=== PATIENT | female | born 1930 | race Caucasian/White ===

== ENCOUNTER 2017-08-08 04:53 | Emergency (ER) | payer MEDICARE, BC ==
[~2017-08-08] VITALS: Ht 182.9 cm; Wt 100.0 kg
[~2017-08-08 04:53] MED LIST: CALTTAB PO; COUM5TAB PO; DOCU1CAP39 PO; ESCI10TA PO; FISHCAP PO; IMOD2TAB PO; LIPI40TA PO; MECL-62 PO; POTA-267 PO; VITAMIN PO; WARF7.5T4 PO; [UNRECOGNIZED DRUG - OTHER] PO
[2017-08-08 05:05] VITALS: BP 185/100; PULSE 75; RESP 20; TEMP 97.9; O2SAT 94
--- NOTE | 2017-08-08 05:25 | PD ---
HPI Chief Complaint: Bleeding Time Seen by Provider: 05:16 Travel History International Travel<30 days: No Contact w/Intl Traveler<30days: No Traveled to known affect area: No History of Present Illness HPI The patient is an 87-year-old female that had a basal cell carcinoma resected at [facility] day, yesterday. She had a small amount of bleeding from the lower pole of the incision and call the ambulance. She has not had any further bleeding in the ambulance or here in emergency department. She does take Eliquis for atrial fibrillation. She did not discontinue the Eliquis for this procedure or after the procedure. She denies any trauma to the portion of the right upper lip PFS Past Medical History Hx Anticoagulant Therapy: Yes Arthritis: Yes Atrial Fibrillation: Yes Autoimmune Disease: Yes (RHEUMATOID ARTHRITIS) Blood Disorders: No Anxiety: Yes Depression: No Heart Rhythm Problems: No Cancer: No Cardiovascular Problems: Yes High Cholesterol: Yes Chemotherapy: Yes (BILATERAL BREAST CA) Chest Pain: Yes Congestive Heart Failure: No Cerebrovascular Accident: No Diabetes: Yes Diminished Hearing: No Diverticulitis: Yes Endocrine: Yes Gastrointestinal Disorders: Yes GERD: No Genitourinary: No Headaches: No Hiatal Hernia: Yes Hypertension: Yes Immune Disorder: No Implanted Vascular Access Dvce: Yes Kidney Stones: No Musculoskeletal: Yes (neuropathy) Neurologic: No Psychiatric: No Reproductive: No Respiratory: No Migraines: No Myocardial Infarction: Yes Radiation Therapy: Yes (MICHAEL. CHEST) Renal Failure: No Seizures: No Sickle Cell Disease: No Thyroid Disease: Yes Ulcer: No Menopausal: Yes : 5 Para: 3 Miscarriage: 2 Past Surgical History Abdominal Surgery: Yes (APPY) AICD: No Appendectomy: Yes Arteriovenous Shunt: No Body Medical Devices: NONE Cardiac Surgery: No Ear Surgery: No Endocrine Surgery: No Eye Surgery: Yes (CATARACT) Genitourinary Surgery: No Gynecologic Surgery: No Hysterectomy: Yes Insulin Pump: No Joint Replacement: Yes (BILATERAL HIPS/LEFT KNEE) Neurologic Surgery: No Oral Surgery: Yes (T & A) Pacemaker: No Thoracic Surgery: No Tonsillectomy: Yes Other Surgery: Yes Social History Alcohol Use: Yes (OCC) Tobacco Use: No (QUIT ) Substance Use: No Allergies-Medications (Allergen,Severity, Reaction): Coded Allergies: Sulfa (Sulfonamide Antibiotics) (Unverified Allergy, Severe, Swelling, ) adhesive (Unverified Allergy, Severe, TAPE, 06/18/17) clindamycin (Unverified Allergy, Severe, 06/18/17) rofecoxib (Unverified Allergy, Severe, Swelling, 06/18/17) tramadol (Unverified Allergy, Severe, Hallucinations, 06/18/17) *MDRO Multi-Drug Resistant Organism (Verified Allergy, Unknown, 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 Reported Meds & Prescriptions Reported Meds & Active Scripts Active Reported Meclizine Hcl (Meclizine HCl) 25 Mg Tab 25 Mg PO BID Caltrate 600+D (Calcium Carbonate/Cholecalciferol) + Tab 2 Tab PO DAILY [Vm 75 Vitamin] 1 Tab PO DAILY Warfarin Sodium 7.5 mg (Warfarin Sodium) 7.5 Mg Tab 7.5 Mg PO MOWEFR@16 Klor-Con 10 (Potassium Chloride) 10 Meq Tab 30 Meq PO DAILY Coumadin 5 mg (Warfarin Sodium) Warfarin Sodium 5 mg Tab 5 Mg PO SUTUTHSA@16 Imodium A-D (Loperamide HCl) 2 Mg Tab 2 Mg PO 8 TIMES A DAY DO NOT EXCEED 8 CAPSULES/TABLETS 24 HOURS Fish Oil ([place]-3 Fatty Acids) Cap 1 Cap PO DAILY Colace 100 Mg Cap (Docusate Sodium) 100 Mg Cap 100 Mg PO DAILY PRN Escitalopram Oxalate 10 Mg Tab 10 Mg PO DAILY Lipitor (Atorvastatin Calcium) 40 Mg Tab 40 Mg PO HS Review of Systems Except as stated in HPI: all other systems reviewed are Neg Physical Exam Narrative GENERAL: Well-nourished, well-developed patient in no apparent distress. The blood pressure is 185/100 but the rest the vital signs are normal. SKIN: Focused skin assessment warm/dry. There is a healing incision above the right upper lip. There is no active bleeding from this incision but there is a small clot on the inferior pole of this incision. HEAD: Normocephalic. EYES: No scleral icterus. No injection or drainage. NECK: Supple, trachea midline. No JVD or lymphadenopathy. CARDIOVASCULAR: Regular rate and rhythm without murmurs, gallops, or rubs. RESPIRATORY: Breath sounds equal bilaterally. No accessory muscle use. GASTROINTESTINAL: Abdomen soft, non-tender, nondistended. MUSCULOSKELETAL: No cyanosis, or edema. BACK: Nontender without obvious deformity. No CVA tenderness. Data Data Last Documented VS Vital Signs Date Time Temp Pulse Resp B/P (MAP) Pulse Ox O2 Delivery O2 Flow Rate FiO2 08/08/17 05:14 74 20 08/08/17 05:05 97.9 185/100 (128) 94 MDM Medical Decision Making Medical Screen Exam Complete: Yes Emergency Medical Condition: Yes Medical Record Reviewed: Yes Differential Diagnosis Coagulopathy from Eliquis, minimal wound bleeding, significant wound bleeding Narrative Course The patient has had minimal bleeding from the incision by history and has no bleeding at this time. She is been observed for over an hour no bleeding was observed. Diagnosis Primary Impression: Bleeding from wound Additional Instructions: Give [facility] a call when they open up later on today. The bleeding appears minimal and there is no bleeding here in the emergency department. I would discontinue Eliquis for several days until the bleeding stops completely. If it does bleed, use pressure with a tissue over the incision for about 5 minutes. This normally will stop the bleeding. The bleeding is already stopped spontaneously in the emergency department despite no pressure put on the incision. Med/Other Pt SpecificInfo: Med Stopped Disposition: 01 DISCHARGE HOME Condition: Stable Mikey Alford MD Aug 08, 2017 05:25
[2017-08-08] MEDS ORDERED: POTA10CA PO (05:28)
[2017-08-08] MEDS ORDERED: CALCTAB19 PO (05:28)
[2017-08-08] MEDS ORDERED: TYLE325T PO (05:28)
[2017-08-08] MEDS ORDERED: LOPE-1 PO (05:28)
[2017-08-08] MEDS ORDERED: APIX5TAB PO (05:28)
[2017-08-08] MEDS ORDERED: ATOR40TA16 PO (05:28)
[2017-08-08] MEDS ORDERED: ESCI10TA PO (05:28)
[2017-08-08] MEDS ORDERED: MECL1TAB42 PO (05:28)
[2017-08-08 06:26] VITALS: BP 178/98
== END 2017-08-08 06:28 | disposition home or self-care (01) ==
LOC: PHED 04:53
DX: Z51.89 Encounter for other specified aftercare (principal); Z85.828 Personal history of other malignant neoplasm of skin; I10 Essential (primary) hypertension; I25.2 Old myocardial infarction; I48.91 Unspecified atrial fibrillation; Z79.01 Long term (current) use of anticoagulants; Z85.3 Personal history of malignant neoplasm of breast; E78.00 Pure hypercholesterolemia, unspecified; E11.9 Type 2 diabetes mellitus without complications
CPT/HCPCS: 99283

== ENCOUNTER 2017-08-27 14:37 | Emergency (ER) | payer MEDICARE, BC ==
[~2017-08-27 14:37] MED LIST changes: +APIX5TAB PO; +ATOR40TA16 PO; +CALCTAB19 PO; -CALTTAB PO; -COUM5TAB PO; -DOCU1CAP39 PO; -FISHCAP PO; -IMOD2TAB PO; -LIPI40TA PO; +LOPE-1 PO; -MECL-62 PO; +MECL1TAB42 PO; -POTA-267 PO; +POTA10CA PO; +TYLE325T PO; -VITAMIN PO; -WARF7.5T4 PO; -[UNRECOGNIZED DRUG - OTHER] PO
[2017-08-27 14:46] VITALS: BP 144/62; PULSE 86; RESP 18; TEMP 97.7; O2SAT 90
[2017-08-27] MEDS ORDERED: APIX5TAB PO (14:55)
[2017-08-27] MEDS ORDERED: FURO1TAB62 PO (14:55)
[2017-08-27] MEDS ORDERED: FAMO20TA2 PO (14:55)
[2017-08-27] MEDS ORDERED: ALLO100T PO (14:55)
[2017-08-27] MEDS ORDERED: GABA300C5 PO (14:55)
[2017-08-27] MEDS ORDERED: [UNRECOGNIZED DRUG - CODE] PO (14:55)
[2017-08-27] MEDS ORDERED: SODIUM CHLORIDE 0.9% FLUSH 10 ML FLUSH IVF PRN (15:30)
[2017-08-27] MEDS ORDERED: SODIUM CHLOR 0.9% 250 ML INJ 250 ML IV ONE (15:30)
[2017-08-27 15:32] VITALS: O2SAT 96
--- NOTE | 2017-08-27 15:49 | PD ---
HPI Chief Complaint: Cardiac Complaint Time Seen by Provider: 14:48 Travel History International Travel<30 days: No Contact w/Intl Traveler<30days: No Traveled to known affect area: No History of Present Illness HPI The patient is a 87-year-old female who presents to the emergency department via EMS for fatigue. The patient lives at home with her , has a home health care nurse who comes by once a week. The patient states she slept in a chair last night because her wanting company, states he normally sleeps in a chair actually sleeps in the bed. The patient states she did not have a good night sleep, was tired this morning when the home health care nurse came by and complained of fatigue. The patient states she Follows sleep and when the nurse took her pulse she thought it was in the 30s. She therefore called her supervising physician, Dr. Guerrero, who referred the patient to the emergency department. The patient does have a history of atrial fibrillation with a heart rate that varies from the 30s to the 80s. She denies any chest pain, shortness of breath, states she recently had a chest x-ray and CT of the thorax performed. She denies any nausea, vomiting, diarrhea, abdominal pain, or dysuria. However, she does have a history of recurrent urinary tract infections. The patient does note mild edema to the legs and states that secondary to sleeping in the chair, states it's better when she sleeps in the bed. Symptoms are mild to moderate, possibly exacerbated after sleeping in a chair all night and not receiving a good night sleep. PFSH Past Medical History Hx Anticoagulant Therapy: Yes Arthritis: Yes Asthma: Yes Atrial Fibrillation: Yes Autoimmune Disease: Yes (RHEUMATOID ARTHRITIS) Blood Disorders: No Anxiety: Yes Depression: No Heart Rhythm Problems: No Cancer: No Cardiovascular Problems: Yes High Cholesterol: Yes Chemotherapy: Yes (BILATERAL BREAST CA) Chest Pain: Yes Congestive Heart Failure: No Cerebrovascular Accident: No Diabetes: Yes Patient Takes Glucophage: No Diminished Hearing: No Diverticulitis: Yes Endocrine: Yes Gastrointestinal Disorders: Yes GERD: No Gout: Yes Genitourinary: No Headaches: No Hiatal Hernia: Yes Hypertension: Yes Immune Disorder: No Implanted Vascular Access Dvce: Yes Kidney Stones: No Musculoskeletal: Yes (NEUROPATHY) Neurologic: No Psychiatric: No Reproductive: No Respiratory: No Migraines: No Myocardial Infarction: Yes Radiation Therapy: Yes (MICHAEL. CHEST) Renal Failure: No Seizures: No Sickle Cell Disease: No Thyroid Disease: Yes Ulcer: No Tetanus Vaccination: < 5 Years Influenza Vaccination: Yes Menopausal: Yes : 5 Para: 3 Miscarriage: 2 Past Surgical History Abdominal Surgery: Yes AICD: No Appendectomy: Yes Arteriovenous Shunt: No Body Medical Devices: NONE Cardiac Surgery: No Ear Surgery: No Endocrine Surgery: No Eye Surgery: Yes (CATARACT) Genitourinary Surgery: No Gynecologic Surgery: No Hysterectomy: Yes Insulin Pump: No Joint Replacement: Yes (BILATERAL HIPS/LEFT KNEE) Neurologic Surgery: No Oral Surgery: Yes (T & A) Pacemaker: No Thoracic Surgery: No Tonsillectomy: Yes Other Surgery: Yes Social History Alcohol Use: Yes (OCC) Tobacco Use: No (QUIT ) Substance Use: No Allergies-Medications (Allergen,Severity, Reaction): Coded Allergies: Sulfa (Sulfonamide Antibiotics) (Unverified Allergy, Severe, Swelling, ) adhesive (Unverified Allergy, Severe, TAPE, 08/27/17) clindamycin (Unverified Allergy, Severe, 08/27/17) rofecoxib (Unverified Allergy, Severe, Swelling, 08/27/17) tramadol (Unverified Allergy, Severe, Hallucinations, 08/27/17) *MDRO Multi-Drug Resistant Organism (Verified Allergy, Unknown, 08/27/17) MRSA 2004 ESBL 2013 Reported Meds & Prescriptions Reported Meds & Active Scripts Active Reported Eliquis (Apixaban) 5 Mg Tab 5 Mg PO BID Darifenacin ER 24 HR 15 Mg Tab 15 Mg PO DAILY Allopurinol 100 Mg Tab 100 Mg PO DAILY Famotidine 20 Mg Tab 20 Mg PO BID Lasix (Furosemide) 20 Mg Tab 20 Mg PO DAILY Gabapentin 300 Mg Cap 300 Mg PO BID Potassium Chloride ER (Potassium Chloride) 10 Meq Cap 10 Meq PO BID Meclizine 25 (Meclizine HCl) 25 Mg Tab 25 Mg PO DIRECTED Review of Systems Except as stated in HPI: all other systems reviewed are Neg General / Constitutional: No: Fever Cardiovascular: Positive: Irregular Rhythm, No: Chest Pain or Discomfort Respiratory: No: Shortness of Breath Gastrointestinal: No: Nausea, Vomiting, Abdominal Pain Genitourinary: No: Dysuria Musculoskeletal: Positive: Weakness, Edema Neurologic: No: Dizziness Physical Exam Narrative GENERAL: Awake, alert, pleasant 87-year-old female who appears her stated age and is in no acute respiratory distress. SKIN: Focused skin assessment warm/dry. HEAD: Atraumatic. Normocephalic. EYES: No injection or drainage. ENT: No nasal bleeding or discharge. Slightly dry mucous membranes. NECK: Trachea midline. No JVD. CARDIOVASCULAR: Irregular, heart rate in the 70s. RESPIRATORY: No accessory muscle use. Clear to auscultation. Breath sounds equal bilaterally. GASTROINTESTINAL: Abdomen soft, non-tender, nondistended. No rebound tenderness. MUSCULOSKELETAL: No obvious deformities. No clubbing. No cyanosis. Pedal edema noted bilaterally. NEUROLOGICAL: Awake and alert. No obvious cranial nerve deficits. Motor grossly within normal limits. Normal speech. PSYCHIATRIC: Appropriate mood and affect; insight and judgment normal. Data Data Last Documented VS Vital Signs Date Time Temp Pulse Resp B/P (MAP) Pulse Ox O2 Delivery O2 Flow Rate FiO2 08/27/17 17:19 65 16 164/72 (102) 97 Nasal Cannula 2.00 08/27/17 14:46 97.7 Orders Orders Complete Blood Count With Diff (08/27/17 15:29) Comprehensive Metabolic Panel (08/27/17 15:29) B-Type Natriuretic Peptide (08/27/17 15:29) Act Partial Throm Time (Ptt) (08/27/17 15:29) Prothrombin Time / Inr (Pt) (08/27/17 15:29) Magnesium (Mg) (08/27/17 15:29) Ckmb (Isoenzyme) Profile (08/27/17 15:29) Troponin I (08/27/17 15:29) Urinalysis - C+S If Indicated (08/27/17 15:29) Iv Access Insert/Monitor (08/27/17 15:29) Electrocardiogram (08/27/17 15:29) Ecg Monitoring (08/27/17 15:29) Oximetry (08/27/17 15:29) Oxygen Administration (08/27/17 15:29) Sodium Chloride 0.9% Flush (Ns Flush) (08/27/17 15:30) Sodium Chlor 0.9% 250 Ml Inj (Ns 250 Ml (08/27/17 15:30) Urine Culture (08/27/17 16:00) Ciprofloxacin 400 Mg Premix (Cipro 400 M (08/27/17 17:15) Labs Laboratory Tests Test 08/27/17 16:00 08/27/17 16:15 08/27/17 17:09 Urine Collection Type VOIDED Urine Color YELLOW Urine Turbidity CLEAR Urine pH 5.5 Urine Specific [place] 1.010 Urine Protein NEG mg/dL Urine Glucose (UA) NEG mg/dL Urine Ketones NEG mg/dL Urine Occult Blood TRACE Urine Nitrite NEG Urine Bilirubin NEG Urine Leukocyte Esterase SMALL Urine WBC 15-19 /hpf Urine WBC Clumps FEW Urine Squamous Epithelial Cells 2-4 /hpf Urine Bacteria RARE /hpf Microscopic Urinalysis Comment CULTURE INDICATED White Blood Count 6.6 TH/MM3 Red Blood Count 3.76 MIL/MM3 Hemoglobin 12.9 GM/DL Hematocrit 39.0 % Mean Corpuscular Volume 103.6 FL Mean Corpuscular Hemoglobin 34.2 PG Mean Corpuscular Hemoglobin Concent 33.0 % Red Cell Distribution Width 16.6 % Platelet Count 194 TH/MM3 Mean Platelet Volume 9.0 FL Neutrophils (%) (Auto) 49.7 % Lymphocytes (%) (Auto) 29.6 % Monocytes (%) (Auto) 8.2 % Eosinophils (%) (Auto) 10.9 % Basophils (%) (Auto) 1.6 % Neutrophils # (Auto) 3.3 TH/MM3 Lymphocytes # (Auto) 2.0 TH/MM3 Monocytes # (Auto) 0.5 TH/MM3 Eosinophils # (Auto) 0.7 TH/MM3 Basophils # (Auto) 0.1 TH/MM3 CBC Comment AUTO DIFF Differential Comment AUTO DIFF CONFIRMED Platelet Estimate NORMAL Platelet Morphology Comment NORMAL B-Type Natriuretic Peptide 211 PG/ML Prothrombin Time 11.8 SEC Prothromb Time International Ratio 1.1 RATIO Activated Partial Thromboplast Time 28.5 SEC Blood Urea Nitrogen 28 MG/DL Creatinine 1.30 MG/DL Random Glucose 92 MG/DL Total Protein 7.3 GM/DL Albumin 3.3 GM/DL Calcium Level 8.8 MG/DL Magnesium Level 1.6 MG/DL Alkaline Phosphatase 161 U/L Aspartate Amino Transf (AST/SGOT) 78 U/L Alanine Aminotransferase (ALT/SGPT) 69 U/L Total Bilirubin 0.5 MG/DL Sodium Level 141 MEQ/L Potassium Level 4.4 MEQ/L Chloride Level 105 MEQ/L Carbon Dioxide Level 29.4 MEQ/L Anion Gap 7 MEQ/L Estimat Glomerular Filtration Rate 39 ML/MIN Total Creatine Kinase 43 U/L Troponin I LESS THAN 0.02 NG/ML MDM Medical Decision Making Medical Screen Exam Complete: Yes Emergency Medical Condition: Yes Medical Record Reviewed: Yes Interpretation(s) EKG reveals atrial/supraventricular rhythm, no visible P waves. Multiple unifocal PVCs noted. Differential Diagnosis Differential diagnosis includes hyponatremia, dehydration, UTI, arrhythmia, bradycardia, electrolyte abnormality, NSTEMI. Narrative Course IV was established, labs are drawn and sent, and the patient was placed on cardiac telemetry monitoring and continuous pulse oximetry monitoring. EKG was ordered and interpreted. UA was sent to lab. The patient was administered 500 cc of normal saline. CPK and troponin are unremarkable. Sodium is within normal limits. UA is positive for UTI, therefore, the patient was administered Cipro 400 mg intravenously. She is allergic to sulfa. She'll be discharged home on Cipro twice a day for one week for UTI. The patient's GFR is 39, therefore, it will be 500 mg twice a day. She is advised to follow-up with her primary physician. Return if symptoms worsen or progress. Diagnosis Primary Impression: UTI (urinary tract infection) Qualified Codes: N30.00 - Acute cystitis without hematuria Additional Impression: Weakness generalized Patient Instructions: General Instructions Additional Instructions: Medications as directed. Follow-up with your primary physician. Return if symptoms worsen or progress. Med/Other Pt SpecificInfo: Prescription(s) given Scripts Ciprofloxacin (Cipro) 500 Mg Tab 500 MG PO BID for Infection for 7 Days, #14 TAB 0 Refills Prov: Ang Barger MD 08/27/17 Disposition: DISCHARGE HOME Condition: Stable Ang Barger MD Aug 27, 2017 15:49
[2017-08-27 16:10] LABS: BILIRUBIN, URINE NEG (NEG); BLOOD, URINE TRACE (NEG); GLUCOSE,URINE NEG (NEG); KETONE, URINE NEG (NEG); NITRITE,URINE NEG (NEG); PH, URINE 5.5 (5.0-8.5); URINE LEUKOCYTE ESTERASE SMALL (NEG)
[2017-08-27 16:19] LABS: URINE COLOR YELLOW (YELLW/STRAW); WBC, URINE 15-19 /hpf (0-5)
[2017-08-27 16:20] LABS: WHITE BLOOD CELL CLUMPS FEW
[2017-08-27 16:22] LABS: BACTERIA, URINE RARE /hpf
[2017-08-27 16:27] LABS: AUTOMATED NEUTROPHIL # 3.3 TH/MM3 (1.8-7.7); BASOPHIL # 0.1 TH/MM3 (0-0.2); BASOPHIL % 1.6 % (0.0-2.0); EOSINOPHIL # 0.7 TH/MM3 (0-0.4); EOSINOPHIL % 10.9 % (0.0-4.0); HEMOGLOBIN 12.9 GM/DL (11.6-15.3); LYMPH % 29.6 % (9.0-44.0); MEAN CELL VOLUME 103.6 FL (80.0-100.0); MEAN CORPUSCULAR HEMOGLOBIN 34.2 PG (27.0-34.0); MONO % 8.2 % (0.0-8.0); MONOCYTE # 0.5 TH/MM3 (0-0.9); NEUT % 49.7 % (16.0-70.0); PLATELET COUNT 194 TH/MM3 (150-450); RED BLOOD COUNT 3.76 MIL/MM3 (4.00-5.30); RED CELL DISTRIBUTION WIDTH 16.6 % (11.6-17.2); WHITE BLOOD COUNT 6.6 TH/MM3 (4.0-11.0)
[2017-08-27] MEDS ORDERED: CIPROFLOXACIN 400 MG PREMIX 200 ML IV ONE (17:15)
[2017-08-27 17:19] VITALS: BP 164/72; PULSE 65; RESP 16; O2SAT 97
[2017-08-27 17:41] LABS: CHLORIDE 105 MEQ/L (98-107); SODIUM (NA) 141 MEQ/L (136-145)
[2017-08-27 17:44] LABS: INTERNATIONAL NORMALIZED RATIO 1.1 RATIO; PROTHROMBIN TIME - PATIENT 11.8 SEC (9.8-11.6)
[2017-08-27 17:45] LABS: CALCIUM 8.8 MG/DL (8.5-10.1)
[2017-08-27 17:46] LABS: ALBUMIN 3.3 GM/DL (3.4-5.0); BICARBONATE 29.4 MEQ/L (21.0-32.0); BLOOD UREA NITROGEN 28 MG/DL (7-18); GLUCOSE,RANDOM 92 MG/DL (74-106); MAGNESIUM 1.6 MG/DL (1.5-2.5)
[2017-08-27 17:49] LABS: ALT (GPT) 69 U/L (10-53); AST (GOT) 78 U/L (15-37); GLOMERULAR FILTRATION RATE 39 ML/MIN (>89)
[2017-08-27 17:51] LABS: TOTAL BILIRUBIN ADULT 0.5 MG/DL (0.2-1.0); TOTAL PROTEIN 7.3 GM/DL (6.4-8.2)
[2017-08-27 17:52] LABS: ALKALINE PHOSPHATASE 161 U/L (45-117)
[2017-08-27 17:54] LABS: TROPONIN I LESS THAN 0.02 NG/ML (0.02-0.05)
[2017-08-27] MEDS ORDERED: CIPR-9 PO (18:42)
[2017-08-27 19:36] VITALS: BP 171/73
--- NOTE | 2017-08-27 21:55 | EKG ---
Date Performed: 08/27/2017 Time Performed: 15:38:08 PTAGE: 87 years EKG: ATRIAL FIBRILLATION WITH PVCS LOW QRS VOLTAGE IN PRECORDIAL LEADS ABNORMAL ECG PREVIOUS TRACING : 06/18/2016 19.12 Compared to prior tracing no significant change DOCTOR: Mikey Walton Interpretating Date/Time 08/27/2017 21:53:12
== END 2017-08-27 19:50 | disposition home or self-care (01) ==
LOC: PHED 14:37
DX: N30.00 Acute cystitis without hematuria (principal); B96.89 Other specified bacterial agents as the cause of diseases classified elsewhere; R53.1 Weakness; I48.91 Unspecified atrial fibrillation; Z79.01 Long term (current) use of anticoagulants
CPT/HCPCS: 80053; 81001; 82550; 83735; 83880; 84484; 85025; 85610; 85730; 87086; 93005; 96361; 96365; 99284; J0744; J7050

== ENCOUNTER 2018-10-18 06:01 | Inpatient (IN) ==
--- NOTE | 2018-10-18 07:05 | XR ---
EXAM DATE: 10/18/2018 6:59 AM EST AGE/SEX: 88 years / Female INDICATIONS: Left sided pelvic pain post fall. CLINICAL DATA: This is the patient's initial encounter. Patient reports that signs and symptoms have been present for 1 day and indicates a pain score of 6/10. MEDICAL/SURGICAL HISTORY: . A-fib. . Bilateral hip replacements. COMPARISON: [facility] – [place], PELVIS AP ONLY, 09/02/2015. . FINDINGS: Osseous structures are intact without evidence of fracture or dislocation. Degenerative changes seen within the lower lumbar spine. Bilateral hip prosthesis which appear appropriate in position. Soft ti ssues are unremarkable. CONCLUSION: No evidence of fracture. Electronically signed by: Anika Quintanilla MD Board Certified Radiologist 10/18/2018 7:04 AM JURGEN T
--- NOTE | 2018-10-18 07:46 | ED ---
HPI General Chief Complaint: Fall Stated Complaint: Hip Pain Time Seen by Provider: 10/18/18 07:36 Source: patient and EMS Mode of arrival: EMS Limitations: no limitations History of Present Illness HPI Narrative: 88-year-old female patient presents to the ER today brought in by EMS after she got out of the shower and try to get her walker and stumbled and fell on her knees and left side. She denies any head injury but is currently complaining of a left hip pain and a right knee pain. She denies any loss of consciousness, chest pains, trouble breathing, or other issues. She states that her left leg has not been giving her much balance and she has been stumbling with it recently. Modifying Factors: None Associated Signs & Symptoms: Fall, left hip injury, right knee injury Risk Factors: Elderly Related Data Home Medications Medication Instructions Recorded Confirmed Unable to Obtain Home Meds 10/18/18 10/18/18 Allergies Allergy/AdvReac Type Severity Reaction Status Date / Time adhesive Allergy Severe TAPE Unverified 10/18/18 06:34 clindamycin Allergy Severe Rash, Unverified 10/18/18 06:34 Localized rofecoxib Allergy Severe Swelling Unverified 10/18/18 06:34 Sulfa (Sulfonamide Allergy Severe Swelling Unverified 10/18/18 06:34 Antibiotics) tramadol Allergy Severe Hallucinati Unverified 10/18/18 06:34 ons *MDRO Multi-Drug Resistant Allergy Unknown Diarrhea Uncoded 10/18/18 06:34 Organism Review of Systems ROS: all other systems reviewed are negative [facility] Medical History Medical History Afib (Acute) Arthritis (Acute) Breast cancer (Acute) COPD (chronic obstructive pulmonary disease) (Acute) HTN (hypertension) (Acute) Surgical History Surgical History Hx of appendectomy (Acute) Social History Social History Substance History: No History of Abuse Second Hand Smoke Exposure: No Smoking Status: Former smoker How Often Do You Have a Drink Containing Alcohol: Monthly or less Recent Out of Country Travel within the Last 8 Weeks: No Immunization History Tetanus Immunization: <5 Years Exam Narrative Exam Narrative: GENERAL: Well-developed elderly female patient currently in moderate distress. Awake and oriented x3. SKIN: Focused skin assessment warm/dry. HEAD: Atraumatic. Normocephalic. EYES: Pupils equal and round. No scleral icterus. No injection or drainage. ENT: No nasal bleeding or discharge. Mucous membranes pink and moist. NECK: Trachea midline. No JVD. CARDIOVASCULAR: Regular rate and rhythm. No murmur appreciated. RESPIRATORY: No accessory muscle use. Clear to auscultation. Breath sounds equal bilaterally. GASTROINTESTINAL: Abdomen soft, non-tender, nondistended. Hepatic and splenic margins not palpable. MUSCULOSKELETAL: No obvious deformities. No clubbing. No cyanosis. No edema. Pelvis: Stable, tender to palpation mildly in the left hip and right buttocks area. There is tenderness palpation and range of motion of the right knee. NEUROLOGICAL: Awake and alert. No obvious cranial nerve deficits. Motor grossly within normal limits. Normal speech. PSYCHIATRIC: Appropriate mood and affect; insight and judgment normal. Course Initial Documented Vital Signs Temperature 98.0 F 10/18/18 06:26 Pulse Rate 94 H 10/18/18 06:26 Respiratory Rate 16 10/18/18 06:26 Blood Pressure 136/82 10/18/18 06:26 Pulse Oximetry 100 10/18/18 06:26 Last Documented Vital Signs Temperature 98.0 F 10/18/18 06:26 Pulse Rate 116 H 10/18/18 08:12 Respiratory Rate 24 10/18/18 07:43 Blood Pressure 121/78 10/18/18 08:12 Pulse Oximetry 95 10/18/18 08:14 Medical Decision Making [facility] Narrative Medical decision making narrative: X-rays not show any obvious acute fractures. She does have a significant UTI on lab work. She is a bit tachycardic as well. IV antibiotic to initiate after cultures were drawn. Lactic acid was also ordered. At this point, patient reports that she is having trouble getting around at home, and has an elderly at home as well, and my plan would be to admit her for further IV antibiotic treatment as well as PT evaluation. Case is discussed with family practice resident service for admission. Medical Screen Exam Complete: Yes Emergency Medical Condition: Yes Differential Diagnosis Differential Diagnosis: Contusions versus fractures versus dislocations Lab Data Lab results reviewed: Yes I reviewed the patient's lab results. Result diagrams: 10/18/18 07:55 10/18/18 07:55 Lab Results 10/18/18 10/18/18 10/18/18 Range/Units 07:55 07:55 08:05 WBC 10.9 (4.0-11.0) th/mm3 RBC 4.03 (4.00-5.30) mil/mm3 Hgb 14.7 (11.6-15.3) gm/dL Hct 43.8 (35.0-46.0) % MCV 108.7 H (80.0-100.0) fL MCH 36.6 H (27.0-34.0) pg MCHC 33.7 (32.0-36.0) % RDW 15.9 (11.6-17.2) % Plt Count 206 (150-450) th/mm3 MPV 9.2 (7.0-11.0) fL Prelim Diff (Auto) Slide review pending Neut % (Auto) 74.0 H (16.0-70.0) % Lymph % (Auto) 17.5 (9.0-44.0) % [place] % (Auto) 5.6 (0.0-8.0) % Eos % (Auto) 2.4 (0.0-4.0) % Baso % (Auto) 0.5 (0.0-2.0) % Neut # (Auto) 8.1 H (1.8-7.7) th/mm3 Lymph # (Auto) 1.9 (1.0-4.8) th/mm3 [place] # (Auto) 0.6 (0.0-0.9) th/mm3 Eos # (Auto) 0.3 (0.0-0.4) th/mm3 Baso # (Auto) 0.0 (0.0-0.2) th/mm3 WBC Differential . Diff Scan Auto diff confirmed Differential Comment . Sodium 137 (136-145) meq/L Potassium 4.0 (3.5-5.1) meq/L Chloride 102 (98-107) meq/L Carbon Dioxide 27.3 (21.0-32.0) meq/L Anion Gap 8 (5-15) meq/L BUN 26 H (7-18) mg/dL Creatinine 1.43 H (0.50-1.00) mg/dL Estimated GFR 35 L (>89) mL/min Random Glucose 98 (74-106) mg/dL Calcium 8.5 (8.5-10.1) mg/dL Magnesium 1.6 (1.5-2.5) mg/dL Total Bilirubin 0.8 (0.2-1.0) mg/dL AST 31 (15-37) U/L ALT 38 (10-53) U/L Alkaline Phosphatase 124 H (45-117) U/L Troponin I Less than 0.02 L (0.02-0.05) ng/mL Total Protein 7.1 (6.4-8.2) g/dL Albumin 3.2 L (3.4-5.0) g/dL Urine Color Yellow (Yellw/Straw) Urine Clarity Cloudy H (Clear) Urine pH 5.0 (5.0-8.5) Ur Specific [place] 1.014 (1.002-1.035) Urine Protein 30 H (Neg-Trace) mg/dL Urine Glucose (UA) Negative (Negative) mg/dL Urine Ketones Negative (Negative) mg/dL Urine Occult Blood Negative (Negative) Urine Nitrate Negative (Negative) Urine Bilirubin Negative (Negative) Urine Urobilinogen Less than 2 (Less than 2) mg/dL Ur Leukocyte Esterase Large H (Negative) Urine RBC 6 H (0-3) /hpf Urine WBC 115 H (0-5) /hpf Urine WBC Clumps Many H (None) Ur Squamous Epith Cells 1 (0-5) /hpf Urine Bacteria Moderate H (None) /hpf Urine Mucus Few H (Occasional) /lpf Micro UA Comment Cath-culture ind Ur Microscopic Review Not Reportable Urine Culture Comments Cath-cult indicated Imaging Data Attestation: I personally reviewed and interpreted this imaging study as follows : Radiologist's impression: Hip X-Ray 10/18/18 06:38 CONCLUSION: No evidence of fracture. Knee X-Ray 10/18/18 07:41 CONCLUSION: No evidence of fracture. Severe tricompartment degenerative changes. ECG Data Attestation: I personally reviewed and interpreted this ECG as follows: Interpretation: EKG shows A. fib with rapid ventricular response at a rate of 110 bpm. No signs of acute ST elevations or depressions. Intermittent PVC noted. Discharge Plan Discharge Order Discharge Orders: ED Use Only Admit Order (Routine); Ordered 10/18/18 Ordered By: Torin Boo Discharge Details Anticipated Discharge Date: 10/18/18 Physicians Team ED Provider: Torin Boo Primary Care Provider: Saqib Allison Rxs /Orders / Referrals /Forms Prescriptions: No Action Unable to Obtain Home Meds RF: 0 Discharge Interventions Interventions: Vital Signs Last Done: 10/18/18 08:12 Status ED Status: With Doctor
[2018-10-18 08:23] LABS: Baso % (Auto) 0.5 % (0.0-2.0); Eos # (Auto) 0.3 th/mm3 (0.0-0.4); Eos % (Auto) 2.4 % (0.0-4.0); Hematocrit 43.8 % (35.0-46.0); Hemoglobin 14.7 gm/dL (11.6-15.3); Lymph # (Auto) 1.9 th/mm3 (1.0-4.8); Lymph % (Auto) 17.5 % (9.0-44.0); Mean Corpuscular HGB Conc 33.7 % (32.0-36.0); Mean Corpuscular Hemoglobin 36.6 pg (27.0-34.0); Mean Corpuscular Volume 108.7 fL (80.0-100.0); Mean Platelet Volume 9.2 fL (7.0-11.0); Mono # (Auto) 0.6 th/mm3 (0.0-0.9); Mono % (Auto) 5.6 % (0.0-8.0); Neut # (Auto) 8.1 th/mm3 (1.8-7.7); Platelet Count 206 th/mm3 (150-450); Red Blood Count 4.03 mil/mm3 (4.00-5.30); Red Cell Distribution Width 15.9 % (11.6-17.2); White Blood Count 10.9 th/mm3 (4.0-11.0)
[2018-10-18 08:37] LABS: Alanine Aminotransferase 38 U/L (10-53); Albumin 3.2 g/dL (3.4-5.0); Anion Gap 8 meq/L (5-15); Aspartate Aminotransferase 31 U/L (15-37); Blood Urea Nitrogen 26 mg/dL (7-18); Calcium 8.5 mg/dL (8.5-10.1); Carbon Dioxide 27.3 meq/L (21.0-32.0); Chloride 102 meq/L (98-107); Glomerular Filtration Rate 35 mL/min (>89); Glucose,Random 98 mg/dL (74-106); Magnesium 1.6 mg/dL (1.5-2.5); Sodium 137 meq/L (136-145)
[2018-10-18 08:40] LABS: Bacteria,Urine Moderate /hpf; Bilirubin,Urine Negative (Negative); Clarity,Urine Cloudy (Clear); Glucose,Urine (UA) Negative (Negative); Leukocyte Esterase,Urine Large (Negative); Mucus,Urine Few /lpf (Occasional); Nitrite,Urine Negative (Negative); Specific Gravity,Urine 1.014 (1.002-1.035); Squamous Epithelial Cell,Urine 1 /hpf (0-5)
[2018-10-18 08:41] LABS: Alkaline Phosphatase 124 U/L (45-117); Total Protein 7.1 g/dL (6.4-8.2)
[2018-10-18 08:41] LABS: Color,Urine Yellow (Yellw/Straw)
--- NOTE | 2018-10-18 08:46 | XR ---
EXAM DATE: 10/18/2018 8:41 AM EST AGE/SEX: 88 years / Female INDICATIONS: Right knee pain post fall. CLINICAL DATA: This is the patient's initial encounter. Patient reports that signs and symptoms have been present for 1 day and indicates a pain score of 10/10. MEDICAL/SURGICAL HISTORY: . A-fib. . Bilateral hip replacements. COMPAR[place]: [facility] [place]A RIGHT (AP/LAT), 09/08/2013. . FINDINGS: Multiple views of the right knee demonstrate no evidence of fracture. There is severe tricompartment degenerative change with bone on bone apposition within the lateral and medial joint line. Large join t line osteophytes are seen within all 3 compartments. The bones are diffusely osteopenic. Soft tissu es are unremarkable. CONCLUSION: No evidence of fracture. Severe tricompartment degenerative changes. Electronically signed by: Anika Quintanilla MD Board Certified Radiologist 10/18/2018 8:44 AM ES T
--- NOTE | 2018-10-18 09:20 | P.HPFP ---
History of Present Illness Primary Care Physician: Saqib Allison MD <Nathan Wynne - 10/18/18 21:56> Saqib Allison MD <Patsy Patterson - 10/18/18 09:20> History of Present Illness: 88-year-old female presenting to the emergency department following a fall at home. She has been complaining of dysuria over the last 3 days as well as a sense of weakness with frequent falls. This morning, she was changing when she had a mechanical fall, hitting her left knee/hip/back. She did not lose consciousness and did not hit her head. She has a history of chronic UTIs for which she recently completed an antibiotic, however continues to have dysuria. She does follow with a urologist and is undergoing further workup for these chronic UTIs. She denies any chest pain, denies any fevers or chills, denies any back pain or flank pain, denies any nausea or vomiting, denies any palpitations prior to this episode. She does live at home with her elderly , they have nursing that coming to the house frequently to help out. <Nathan Wynne - 10/18/18 21:56> 88 year old female presents with a fall this morning that happened around 4 AM as she was trying to change her depends/sanitary pad this morning. She says she lost her balance and fell on her hip on the Left side. Her then called [facility] and they brought her to the ED. She has been also complaining of dysuria for the past 3 days and has been placing some vaginal powder on her sanitary napkins with minimal relief. Denies any increase in frequency and urgency. She has had chronic UTIs for the past two years ( has not been off of antibiotics for 6 weeks at a time). Recently went to urologist, Dr. Gramajo for further workup. They did a bladder scope on her and she is unsure of what they diagnosed. Confirms currently being on antibiotics for a UTI and her last dose was yesterday. Unsure of the antibiotic regimen. Today she denies any CP, SOB , Ab pain, leg pain. PCP: Dr. Burleson. Senior Technical Business Analyst: Dr. Walton ( last seen on oct 03). PMH: HTN, Afib, Depression per patient's caregiver. PSH: Shoulder surgery. Appendectomy. A: Sulpha drugs (rash) Social Hx: Lives at home with . Never smoked cigarettes. No alcohol use. Denies drug use. Denies any recent travel. Fam Hx: Heart disease in mother and father. Diabetes in brother. Meds: Allopurinol 100 mg daily atorvastatin 40 mg daily Escitalopram oxalate 5 mg daily Famotidine 20 mg daily Furosemide 20 mg daily Kl-OR 10 mg Meclizine 25 mg PRN Methenamine hippurate 1 gram orally BID Multivitamins Calcium 600 Spironolactone 25 mg Eliquis 5 mg q day Darifenacin 15 mg Nebulizer: bromide (QID) ROS: See HPI. <Patsy Patterson 10/18/18 16:31> - Diagnosis (1) UTI (urinary tract infection) (2) Contusion of hip (3) Afib (4) CKD (chronic kidney disease) (5) HTN (hypertension) (6) Elevated MCV (7) Polypharmacy (8) Depression (9) DVT prophylaxis (10) Nutrition, metabolism, and development symptoms <Nathan Wynne 10/18/18 21:56> (1) UTI (urinary tract infection) (2) Contusion of hip (3) Afib (4) CKD (chronic kidney disease) (5) HTN (hypertension) (6) Elevated MCV (7) Polypharmacy (8) Depression (9) DVT prophylaxis (10) Nutrition, metabolism, and development symptoms <Patsy Patterson 10/18/18 16:34> Inpatient Certification: I certify that the inpatient services were ordered in accordance with Medicare regulations governing the order. This includes certification that hospital inpatient services are reasonable and necessary and in the case of services not specified as inpatient-only under 42 CFR 419.22(n), that they are appropriately provided as inpatient services in accordance to with the 2-midnight benchmark under 43 CFR 412.3(e) <Nathan Wynne 10/18/18 21:56> PMFSH - History History Provided By: Patient <Patsy Patterson 10/18/18 09:20> - Medical History Medical History: Medical History (Last Reviewed 10/18/18 @ 07:47 by Torin Boo MD) Afib Arthritis Breast cancer COPD (chronic obstructive pulmonary disease) HTN (hypertension) <Nathan Wynne - 10/18/18 21:56> Medical History (Last Reviewed 10/18/18 @ 07:47 by Torin Boo MD) Afib Arthritis Breast cancer COPD (chronic obstructive pulmonary disease) HTN (hypertension) <LeonardoPatsy - 10/18/18 09:20> - Surgical History Surgical History: Surgical History (Last Reviewed 10/18/18 @ 07:47 by Torin Boo MD) Hx of appendectomy <SherrellNathan - 10/18/18 21:56> Surgical History (Last Reviewed 10/18/18 @ 07:47 by Torin Boo MD) Hx of appendectomy <Patsy Patterson - 10/18/18 09:20> - Tobacco History Second Hand Smoke Exposure: No <Patsy Patterson - 10/18/18 09:20> Tobacco Use In Past 30 Days: No <Patsy Patterson - 10/18/18 09:20> Smoking Status: Former smoker <Patsy Patterson - 10/18/18 09:20> - Alcohol History How Often Do You Have a Drink Containing Alcohol: Monthly or less <Patsy Patterson - 10/18/18 09:20> - Substance Use History Substance History: No History of Abuse <Patsy Patterson - 10/18/18 09:20> - Travel History Recent Travel Out of the Country Within the Last 8 Weeks: No <Patsy Patterson - 10/18/18 09:20> - Immunization History Tetanus Immunization: <5 Years <Patsy Patterson - 10/18/18 09:20> Medications and Allergies Allergies Allergy/AdvReac Type Severity Reaction Status Date / Time adhesive Allergy Severe TAPE Unverified 10/18/18 06:34 clindamycin Allergy Severe Rash, Unverified 10/18/18 06:34 Localized rofecoxib Allergy Severe Swelling Unverified 10/18/18 06:34 Sulfa (Sulfonamide Allergy Severe Swelling Unverified 10/18/18 06:34 Antibiotics) tramadol Allergy Severe Hallucinati Unverified 10/18/18 06:34 ons *MDRO Multi-Drug Resistant Allergy Unknown Diarrhea Uncoded 10/18/18 06:34 Organism <Nathan Wynne - 10/18/18 21:56> Home Medications Medication Instructions Recorded Confirmed Type allopurinol 100 mg PO DAILY 10/18/18 10/18/18 History apixaban [Eliquis] 5 mg PO DAILY 10/18/18 10/18/18 History atorvastatin 40 mg PO DAILY 10/18/18 10/18/18 History calcium carbonate [Calcium 600] 600 mg PO BID 10/18/18 10/18/18 History darifenacin 15 mg PO DAILY 10/18/18 10/18/18 History escitalopram oxalate 5 mg PO DAILY 10/18/18 10/18/18 History famotidine 20 mg PO DAILY 10/18/18 10/18/18 History fexofenadine [Laura Allergy] 180 mg PO DAILY 10/18/18 10/18/18 History furosemide 20 mg PO DAILY 10/18/18 10/18/18 History ipratropium bromide 2.5 ml INHALATION Q6H PRN 10/18/18 10/18/18 History meclizine 25 mg PO DAILY PRN 10/18/18 10/18/18 History methenamine hippurate 1 g PO BID 10/18/18 10/18/18 History multivitamin 1 tab PO DAILY 10/18/18 10/18/18 History potassium chloride [Klor-Con 10] 10 meq PO DAILY 10/18/18 10/18/18 History spironolactone 25 mg PO DAILY 10/18/18 10/18/18 History <Nathan Wynne - 10/18/18 21:56> Active Medications: Active Medications Acetaminophen (Tylenol) 650 mg PO Q4H PRN PRN Reason: Temp > 100.4 Acetaminophen (Tylenol) 650 mg PO Q6HR PRN PRN Reason: PAIN SCALE 1 TO 2 Last Admin: 10/18/18 16:44 Dose: 650 mg Al Hydroxide/Mg Hydroxide (Milk Of Magnesia Liq) 30 ml PO Q12H PRN PRN Reason: Mild Constipation Allopurinol (Zyloprim) 100 mg PO DAILY [facility] Last Admin: 10/18/18 16:50 Dose: 100 mg Apixaban (Eliquis) 5 mg PO Q24H [facility] Last Admin: 10/18/18 16:44 Dose: 5 mg Atorvastatin Calcium (Lipitor) 40 mg PO DAILY [facility] Last Admin: 10/18/18 16:44 Dose: 40 mg Bisacodyl (Dulcolax Supp) 10 mg RECTAL DAILY PRN PRN Reason: SEVERE CONSITIPATION Calcium Carbonate (Oscal) 500 mg PO BID [facility] Last Admin: 10/18/18 20:16 Dose: 500 mg Escitalopram Oxalate (Lexapro) 5 mg PO DAILY [facility] Famotidine (Pepcid) 20 mg PO DAILY [facility] Last Admin: 10/18/18 16:44 Dose: 20 mg Furosemide (Lasix) 20 mg PO DAILY [facility] Last Admin: 10/18/18 16:45 Dose: 20 mg Sodium Chloride (Ns Inj) 1,000 mls @ 110 mls/hr IV.CONT .Q9H6M [facility] Last Admin: 10/18/18 18:07 Dose: 110 mls/hr Ceftriaxone Sodium 1,000 mg/ (Sodium Chloride) 100 mls @ 200 mls/hr IV.SIG Q24H [facility] Ipratropium [place] (Atrovent Neb) 0.5 mg NEB Q6HR NEB PRN PRN Reason: Shortness Of Breath Or Wheezin Lactulose (Lactulose Liq) 30 ml PO DAILY PRN PRN Reason: SEVERE CONSITIPATION Meclizine HCl (Antivert) 25 mg PO DAILY PRN PRN Reason: SEE LABEL COMMENTS Multivitamins (Theragran) 1 tab PO DAILY [facility] Naloxone HCl (Narcan Inj) 0.4 mg IV.PUSH UNSCH PRN PRN Reason: SEE LABEL COMMENTS Ondansetron HCl (Zofran Inj) 4 mg IV.PUSH Q6H PRN PRN Reason: NAUSEA OR VOMITING Potassium Chloride (Klor-Con 10) 10 meq PO DAILY [facility] Last Admin: 10/18/18 16:44 Dose: 10 meq Senna/Docusate Sodium (Cheryl-Colace) 1 tab PO BID [facility] Last Admin: 10/18/18 20:16 Dose: 1 tab Sennosides (Senokot) 17.2 mg PO Q12H PRN PRN Reason: Moderate Constipation Sodium Chloride (Ns Flush) 2 ml IV.FLUSH BID [facility] Last Admin: 10/18/18 20:16 Dose: Not Given Sodium Chloride (Ns Flush) 2 ml IV.FLUSH PRN PRN PRN Reason: FLUSH AFTER USING IV ACCESS Spironolactone (Aldactone) 25 mg PO DAILY [facility] Last Admin: 10/18/18 16:44 Dose: 25 mg Tolterodine Tartrate (Detrol La) 4 mg PO DAILY [facility] Last Admin: 10/18/18 16:50 Dose: 4 mg <Nathan Wynne - 10/18/18 21:56> Active Medications Ceftriaxone Sodium 1,000 mg/ (Sodium Chloride) 100 mls @ 200 mls/hr IV.SIG ONCE ONE Stop: 10/18/18 09:27 Sodium Chloride (Ns Flush) 2 ml IV.FLUSH PRN PRN PRN Reason: FLUSH AFTER USING IV ACCESS <KhangиринаPatsy - 10/18/18 09:20> Exam Vital signs: Vital Signs 10/18/18 06:26 10/18/18 07:36 10/18/18 07:43 Temperature 98.0 F Pulse Rate 94 H 116 H 98 H Respiratory Rate 16 24 Blood Pressure 136/82 195/102 H Pulse Oximetry 100 96 10/18/18 08:12 10/18/18 08:14 10/18/18 10:22 Temperature Pulse Rate 116 H Respiratory Rate Blood Pressure 121/78 Pulse Oximetry 96 95 95 10/18/18 13:14 10/18/18 17:17 10/18/18 17:57 Temperature Pulse Rate 110 H 105 H Respiratory Rate 20 16 Blood Pressure 116/65 Pulse Oximetry 10/18/18 19:39 Temperature 97.9 F Pulse Rate 97 H Respiratory Rate 18 Blood Pressure 106/57 L Pulse Oximetry 93 L Intake & Output 10/18/18 10/18/18 10/19/18 06:59 18:59 06:59 Intake Total 1100 / 1100 Balance 1100 / 1100 Weight 99.79 kg 99.79 kg Intake: IV 1100 / 1100 NS Inj 1,000 ML @ 110 mls/hr IV 1000 / 1000 .CONT .Q9H6M [facility] Rx#:[id number] Rocephin Inj 1,000 MG In NS Inj 100 / 100 100 ML @ 200 mls/hr IV.SIG ONCE ONE Rx#:[id number] Other: # Urine Diapers 2 Weight On Admission 99.79 kg <Nathan Wynne - 10/18/18 21:56> Vital Signs 10/18/18 06:26 10/18/18 07:36 10/18/18 07:43 Temperature 98.0 F Pulse Rate 94 H 116 H 98 H Respiratory Rate 16 24 Blood Pressure 136/82 195/102 H Pulse Oximetry 100 96 10/18/18 08:12 10/18/18 08:14 Temperature Pulse Rate 116 H Respiratory Rate Blood Pressure 121/78 Pulse Oximetry 96 95 Intake & Output 10/17/18 10/18/18 10/18/18 18:59 06:59 18:59 Weight 99.79 kg <Patsy Patterson - 10/18/18 09:20> Narrative: CONSTITUTIONAL/GEN: Elderly female, lying in bed in no obvious distress EYES: conjunctiva normal, PERRLA, EOMI. LUNGS: clear A-P, respiratory effort is normal. CARDIOVASCULAR: RR without murmur or gallop. No significant edema. GI/ABD: soft without masses, without organomegaly. : no CVA tenderness NEURO: No focal deficits. SKIN: color normal, no rashes noted. HEME/LYMPH: no bruising, petechia or significant adenopathy PSYCH/MENTAL STATUS: Alert and oriented x 3. <Nathan Wynne - 10/18/18 21:56> GENERAL: Elderly appearing female, laying comfortably in bed, in NAD. SKIN: Warm and dry. HEAD: Atraumatic. Normocephalic. Dry oral mucosa. NECK: Trachea midline. No JVD. CARDIOVASCULAR: Irregular irregular rate and rhythm. Distant heart sounds. RESPIRATORY: Anterior auscultation. No accessory muscle use. Clear to auscultation. Breath sounds equal bilaterally. GASTROINTESTINAL: Abdomen soft, nondistended. Minimal pain to palpation of the suprapubic region. Pain to palpation of the left greater trochanter. MUSCULOSKELETAL: Extremities without clubbing, cyanosis, or edema. No obvious deformities. PSYCHIATRIC: Appropriate mood and affect; insight and judgment normal. <Patsy Patterson - 10/18/18 16:08> Results - Labs Result diagrams: 10/18/18 07:55 10/18/18 07:55 <Nathan Wynne - 10/18/18 21:56> Abnormal lab results 10/18/18 10/18/18 10/18/18 Range/Units 07:55 07:55 08:05 MCV 108.7 H (80.0-100.0) fL MCH 36.6 H (27.0-34.0) pg Neut % (Auto) 74.0 H (16.0-70.0) % Neut # (Auto) 8.1 H (1.8-7.7) th/mm3 BUN 26 H (7-18) mg/dL Creatinine 1.43 H (0.50-1.00) mg/dL Estimated GFR 35 L (>89) mL/min Alkaline Phosphatase 124 H (45-117) U/L Troponin I Less than 0.02 L (0.02-0.05) ng/mL Albumin 3.2 L (3.4-5.0) g/dL Vitamin B12 (193-986) pg/mL Folate (3.1-17.5) ng/mL Urine Clarity Cloudy H (Clear) Urine Protein 30 H (Neg-Trace) mg/dL Ur Leukocyte Esterase Large H (Negative) Urine RBC 6 H (0-3) /hpf Urine WBC 115 H (0-5) /hpf Urine WBC Clumps Many H (None) Urine Bacteria Moderate H (None) /hpf Urine Mucus Few H (Occasional) /lpf 10/18/18 Range/Units 15:45 MCV (80.0-100.0) fL MCH (27.0-34.0) pg Neut % (Auto) (16.0-70.0) % Neut # (Auto) (1.8-7.7) th/mm3 BUN (7-18) mg/dL Creatinine (0.50-1.00) mg/dL Estimated GFR (>89) mL/min Alkaline Phosphatase (45-117) U/L Troponin I (0.02-0.05) ng/mL Albumin (3.4-5.0) g/dL Vitamin B12 1225 H (193-986) pg/mL Folate Greater than 20.0 H (3.1-17.5) ng/mL Urine Clarity (Clear) Urine Protein (Neg-Trace) mg/dL Ur Leukocyte Esterase (Negative) Urine RBC (0-3) /hpf Urine WBC (0-5) /hpf Urine WBC Clumps (None) Urine Bacteria (None) /hpf Urine Mucus (Occasional) /lpf Short CBC 10/18/18 Range/Units 07:55 WBC 10.9 (4.0-11.0) th/mm3 Hgb 14.7 (11.6-15.3) gm/dL Hct 43.8 (35.0-46.0) % Plt Count 206 (150-450) th/mm3 [facility] 10/18/18 07:55 Sodium 137 Potassium 4.0 Chloride 102 Carbon Dioxide 27.3 BUN 26 H Creatinine 1.43 H Calcium 8.5 Cardiac Enzymes 10/18/18 Range/Units 07:55 Troponin I Less than 0.02 L (0.02-0.05) ng/mL Liver Function 10/18/18 Range/Units 07:55 Total Bilirubin 0.8 (0.2-1.0) mg/dL AST 31 (15-37) U/L ALT 38 (10-53) U/L Alkaline Phosphatase 124 H (45-117) U/L Albumin 3.2 L (3.4-5.0) g/dL Urine 10/18/18 Range/Units 08:05 Urine Color Yellow (Yellw/Straw) Urine Clarity Cloudy H (Clear) Urine pH 5.0 (5.0-8.5) Ur Specific [place] 1.014 (1.002-1.035) Urine Protein 30 H (Neg-Trace) mg/dL Urine Glucose (UA) Negative (Negative) mg/dL <Nathan Wynne - 10/18/18 21:56> Abnormal lab results 10/18/18 10/18/18 10/18/18 Range/Units 07:55 07:55 08:05 MCV 108.7 H (80.0-100.0) fL MCH 36.6 H (27.0-34.0) pg Neut % (Auto) 74.0 H (16.0-70.0) % Neut # (Auto) 8.1 H (1.8-7.7) th/mm3 BUN 26 H (7-18) mg/dL Creatinine 1.43 H (0.50-1.00) mg/dL Estimated GFR 35 L (>89) mL/min Alkaline Phosphatase 124 H (45-117) U/L Troponin I Less than 0.02 L (0.02-0.05) ng/mL Albumin 3.2 L (3.4-5.0) g/dL Urine Clarity Cloudy H (Clear) Urine Protein 30 H (Neg-Trace) mg/dL Ur Leukocyte Esterase Large H (Negative) Urine RBC 6 H (0-3) /hpf Urine WBC 115 H (0-5) /hpf Urine WBC Clumps Many H (None) Urine Bacteria Moderate H (None) /hpf Urine Mucus Few H (Occasional) /lpf Short CBC 10/18/18 Range/Units 07:55 WBC 10.9 (4.0-11.0) th/mm3 Hgb 14.7 (11.6-15.3) gm/dL Hct 43.8 (35.0-46.0) % Plt Count 206 (150-450) th/mm3 BMP 10/18/18 07:55 Sodium 137 Potassium 4.0 Chloride 102 Carbon Dioxide 27.3 BUN 26 H Creatinine 1.43 H Calcium 8.5 Cardiac Enzymes 10/18/18 Range/Units 07:55 Troponin I Less than 0.02 L (0.02-0.05) ng/mL Liver Function 10/18/18 Range/Units 07:55 Total Bilirubin 0.8 (0.2-1.0) mg/dL AST 31 (15-37) U/L ALT 38 (10-53) U/L Alkaline Phosphatase 124 H (45-117) U/L Albumin 3.2 L (3.4-5.0) g/dL Urine 10/18/18 Range/Units 08:05 Urine Color Yellow (Yellw/Straw) Urine Clarity Cloudy H (Clear) Urine pH 5.0 (5.0-8.5) Ur Specific [place] 1.014 (1.002-1.035) Urine Protein 30 H (Neg-Trace) mg/dL Urine Glucose (UA) Negative (Negative) mg/dL <Patsy Patterson - 10/18/18 09:20> - Imaging Impressions Hip X-Ray 10/18/18 06:38 CONCLUSION: No evidence of fracture. Knee X-Ray 10/18/18 07:41 CONCLUSION: No evidence of fracture. Severe tricompartment degenerative changes. <Nathan Wynne - 10/18/18 21:56> Impressions Hip X-Ray 10/18/18 06:38 CONCLUSION: No evidence of fracture. Knee X-Ray 10/18/18 07:41 CONCLUSION: No evidence of fracture. Severe tricompartment degenerative changes. <Patsy Patterson - 10/18/18 09:20> Caprini VTE Risk Assessment Caprini VTE Risk Assessment: Moderate/High Risk (score >= 2) <Patsy Patterson - 10/18/18 16:08> Caprini Risk Assessment Model: Point Value = 1 Point Value = 2 Point Value = 3 Point Value = 5 Age 41-60 Minor surgery BMI > 25 kg/m2 Swollen legs Varicose veins or History of unexplained or recurrent spontaneous Oral contraceptives or hormone replacement Sepsis (< 1 month) Serious lung disease, including pneumonia (< 1 month) Abnormal pulmonary function Acute myocardial infarction Congestive heart failure (< 1 month) History of inflammatory bowel disease Medical patient at bed rest Age 61-74 Arthroscopic surgery Major open surgery (> 45 min) Laparoscopic surgery (> 45 min) Malignancy Confined to bed (> 72 hours) Immobilizing plaster cast Central venous access Age >= 75 History of VTE Family history of VTE Factor V Leiden Prothrombin [id number] Lupus anticoagulant Anticardiolipin antibodies Elevated serum homocysteine Heparin-induced thrombocytopenia Other congenital or acquired thrombophilia Stroke (< 1 month) Elective arthroplasty Hip, pelvis, or leg fracture Acute spinal cord injury (< 1 month) <Nathan Wynne - 10/18/18 21:56> Point Value = 1 Point Value = 2 Point Value = 3 Point Value = 5 Age 41-60 Minor surgery BMI > 25 kg/m2 Swollen legs Varicose veins or History of unexplained or recurrent spontaneous Oral contraceptives or hormone replacement Sepsis (< 1 month) Serious lung disease, including pneumonia (< 1 month) Abnormal pulmonary function Acute myocardial infarction Congestive heart failure (< 1 month) History of inflammatory bowel disease Medical patient at bed rest Age 61-74 Arthroscopic surgery Major open surgery (> 45 min) Laparoscopic surgery (> 45 min) Malignancy Confined to bed (> 72 hours) Immobilizing plaster cast Central venous access Age >= 75 History of VTE Family history of VTE Factor V Leiden Prothrombin [id number] Lupus anticoagulant Anticardiolipin antibodies Elevated serum homocysteine Heparin-induced thrombocytopenia Other congenital or acquired thrombophilia Stroke (< 1 month) Elective arthroplasty Hip, pelvis, or leg fracture Acute spinal cord injury (< 1 month) <Patsy Patterson - 10/18/18 09:20> Prophylaxis Regimen: Total Risk Factor Score Risk Level Prophylaxis Regimen 0-1 Low Early ambulation 2 Moderate Order ONE of the following: *Sequential Compression Device (SCD) *Heparin 5000 units SQ BID 3-4 Higher Order ONE of the following medications: *Heparin 5000 units SQ TID *Enoxaparin/Lovenox 40 mg SQ daily (WT < 150 kg, CrCl > 30 mL/min) *Enoxaparin/Lovenox 30 mg SQ daily (WT < 150 kg, CrCl > 10-29 mL/min) *Enoxaparin/Lovenox 30 mg SQ BID (WT < 150 kg, CrCl > 30 mL/min) AND/OR *Sequential Compression Device (SCD) 5 or more Highest Order ONE of the following medications: *Heparin 5000 units SQ TID (Preferred with Epidurals) *Enoxaparin/Lovenox 40 mg SQ daily (WT < 150 kg, CrCl > 30 mL/min) *Enoxaparin/Lovenox 30 mg SQ daily (WT < 150 kg, CrCl > 10-29 mL/min) *Enoxaparin/Lovenox 30 mg SQ BID (WT < 150 kg, CrCl > 30 mL/min) AND *Sequential Compression Device (SCD) <Nathan Wynne - 10/18/18 21:56> Total Risk Factor Score Risk Level Prophylaxis Regimen 0-1 Low Early ambulation 2 Moderate Order ONE of the following: *Sequential Compression Device (SCD) *Heparin 5000 units SQ BID 3-4 Higher Order ONE of the following medications: *Heparin 5000 units SQ TID *Enoxaparin/Lovenox 40 mg SQ daily (WT < 150 kg, CrCl > 30 mL/min) *Enoxaparin/Lovenox 30 mg SQ daily (WT < 150 kg, CrCl > 10-29 mL/min) *Enoxaparin/Lovenox 30 mg SQ BID (WT < 150 kg, CrCl > 30 mL/min) AND/OR *Sequential Compression Device (SCD) 5 or more Highest Order ONE of the following medications: *Heparin 5000 units SQ TID (Preferred with Epidurals) *Enoxaparin/Lovenox 40 mg SQ daily (WT < 150 kg, CrCl > 30 mL/min) *Enoxaparin/Lovenox 30 mg SQ daily (WT < 150 kg, CrCl > 10-29 mL/min) *Enoxaparin/Lovenox 30 mg SQ BID (WT < 150 kg, CrCl > 30 mL/min) AND *Sequential Compression Device (SCD) <Patsy Patterson - 10/18/18 09:20> Assessment and Plan - Assessment (1) UTI (urinary tract infection) Code(s): N39.0 - Urinary tract infection, site not specified Status: Acute (2) Contusion of hip Code(s): S70.00XA - Contusion of unspecified hip, initial encounter Status: Acute (3) Afib Code(s): I48.91 - Unspecified atrial fibrillation Status: Acute (4) CKD (chronic kidney disease) Code(s): N18.9 - Chronic kidney disease, unspecified Status: Acute (5) HTN (hypertension) Code(s): I10 - Essential (primary) hypertension Status: Acute (6) Elevated MCV Code(s): R71.8 - Other abnormality of red blood cells Status: Acute (7) Polypharmacy Code(s): Z79.899 - Other intermediate (current) drug therapy Status: Acute (8) Depression Code(s): F32.9 - Major depressive disorder, single episode, unspecified Status : Acute (9) DVT prophylaxis Status: Acute (10) Nutrition, metabolism, and development symptoms Code(s): R63.8 - Other symptoms and signs concerning food and fluid intake Status: Acute <Nathan Wynne - 10/18/18 21:56> (1) UTI (urinary tract infection) Code(s): N39.0 - Urinary tract infection, site not specified Status: Acute Plan: Patient with history of chronic UTI. Status post completion of antibiotics yesterday for UTI. Unsure of antibiotic regimen. From medicines reconciled: Patient seems to be on methenamine hippurate twice daily. Will hold. will continue home dose of tolterodine tartrate 4 mg daily. Patient admitted to inpatient due to failed outpatient therapy of UTI. Physical exam pertinent for suprapubic tenderness. Patient confirms dysuria for the past 3 days. UA positive for large leukocyte esterase. Moderate bacteria. Given 1 g of ceftriaxone in ED. Will continue. Will adjust antibiotics according to urine culture results. (2) Contusion of hip Code(s): S70.00XA - Contusion of unspecified hip, initial encounter Status: Acute Plan: Status post fall on left hip this a.m. Physical exam pertinent for tenderness at the left greater trochanter. Hip x-ray and knee x-ray shows no evidence of fracture. PT/OT ordered. Evaluate. Will avoid narcotics since patient is elderly. Concerning for sedation. Tylenol 650 for pain. Case management consulted for possible SNF placement. (3) Afib Code(s): I48.91 - Unspecified atrial fibrillation Status: Acute Plan: Continue Eliquis. Telemetry. (4) CKD (chronic kidney disease) Code(s): N18.9 - Chronic kidney disease, unspecified Status: Acute Plan: Creatinine on admission 1.43, increased from 1.30 in 2017. Concerns with hydration due to patient having somewhat underlying CHF. Continue on quarter maintenance therapy. Trend CR in a.m. (5) HTN (hypertension) Code(s): I10 - Essential (primary) hypertension Status: Acute Plan: Patient currently normotensive. We will continue Aldactone 25 mg daily. Continue atorvastatin 40 daily. (6) Elevated MCV Code(s): R71.8 - Other abnormality of red blood cells Status: Acute Plan: Elevated MCV at 108.7. Hemoglobin and hematocrit stable. Folate and B12 ordered. (7) Polypharmacy Code(s): Z79.899 - Other long term care phlebotomist (current) drug therapy Status: Acute Plan: Patient has not confirmed these medical conditions but from medicine reconciliation: Will continue allopurinol 100 mg daily. Calcium 500 mg twice daily Pepcid 20 mg daily Lasix 20 mg daily Atrovent 0.5 mg nebulizer every 6 as needed Meclizine 25 mg as needed Potassium chloride 10 mg daily . (8) Depression Code(s): F32.9 - Major depressive disorder, single episode, unspecified Status : Acute Plan: Continue escitalopram 5 mg. (9) DVT prophylaxis Status: Acute Plan: Eliquis. (10) Nutrition, metabolism, and development symptoms Code(s): R63.8 - Other symptoms and signs concerning food and fluid intake Status: Acute Plan: Fluids: Quarter maintenance therapy at 110 mls/hour. Electrolytes. Monitor and replete as needed. Nutrition: Cardiac diet. <Patsy Patterson - 10/18/18 16:34> - Assessment and Plan 88-year-old female past medical history of hypertension, A. fib on Eliquis, depression presents status post a fall on her left hip. Patient also has a history of chronic UTIs. Left hip x-rays of the right and left knee x-ray were unremarkable. No fracture injected. UA remarkable for large leukocyte esterase and moderate bacteria. Patient admitted to inpatient due to failure of outpatient UTI treatment. <Patsy Patterson - 10/18/18 16:33> Discharge Planning: Dr. Wynne and Dr. Hawley. <Patsy Patterson - 10/18/18 16:31> - Attending Attestation Patient independently examined and case discussed with resident physicians I have read the above note and agree with the assessment and plan as discussed with me I was involved in all medical decision making for this patient Nathan Wynne MD <Nathan Wynne - 10/18/18 21:56>
[2018-10-18] MEDS ORDERED: Bisacodyl 10 MG Supp RECTAL PRN (09:56)
[2018-10-18] MEDS: Sod Chloride 0.9% Inj 1,000 ML IV.CONT SCH ×2 (10:26→18:07)
[2018-10-18] MEDS ORDERED: Naloxone Inj 0.4 MG/ML Vial IV.PUSH PRN (11:07)
--- NOTE | 2018-10-18 11:35 | ECG ---
Date Performed: 10/18/2018 Time Performed: 06:20:09 PTAGE: 88 years EKG: ATRIAL FIBRILLATION WITH RAPID VENTRICULAR RESPONSE WITH ABERRANT CONDUCTION OR VENTRICULAR PREMATURE COMPLEXES MARKED LEFT AXIS DEVIATION Compared to previous tracing the rate is faster other patel no significant change ABNORMAL ECG PREVIOUS TRACING : 08/27/2017 15.38 DOCTOR: Terry Duran Interpretating Date/Time 10/18/2018 11:34:18
[2018-10-18 16:38] LABS: Vitamin B12 1225 pg/mL (193-986)
[2018-10-18] MEDS: Acetaminophen 325 MG Tablet PO PRN ×2 (16:44→21:55)
[2018-10-18] MEDS: Spironolactone 25 MG Tablet PO SCH (16:44)
[2018-10-18] MEDS: Famotidine 20 MG Tablet PO SCH (16:44)
[2018-10-18] MEDS: Furosemide 20 MG Tablet PO SCH (16:45)
[2018-10-18] MEDS: Allopurinol 100 MG Tablet PO SCH (16:50)
[2018-10-18] MEDS: Tolterodine Tartrate LA 4 MG Capsule PO SCH (16:50)
--- NOTE | 2018-10-18 18:01 | ECG ---
Date Performed: 10/18/2018 Time Performed: 07:53:42 PTAGE: 88 years EKG: ATRIAL FIBRILLATION WITH RAPID VENTRICULAR RESPONSE WITH ABERRANT CONDUCTION OR VENTRICULAR PREMATURE COMPLEXES MARKED LEFT AXIS DEVIATION PATTERN CONSISTENT WITH PULMONARY DISEASE MODERATE ST DEPRESSION Since the previous tracing, no significant change noted ABNORMAL ECG PREVIOUS TRACING : 10/18/2018 06.20 DOCTOR: Terry Duran Interpretating Date/Time 10/18/2018 18:01:03
[2018-10-18] MEDS: Senna/Docusate Sodium 8.6/50 MG Tablet PO SCH (20:16)
[2018-10-18] MEDS: Calcium Carbonate 500 MG Tablet PO SCH (20:16)
[2018-10-19] MEDS: Sod Chloride 0.9% Inj 1,000 ML IV.CONT SCH ×4 (02:38→23:11)
[2018-10-19] MEDS: Acetaminophen 325 MG Tablet PO PRN ×2 (06:10→14:16)
[2018-10-19] MEDS: Escitalopram 10 MG Tablet PO SCH (10:01)
[2018-10-19] MEDS: Furosemide 20 MG Tablet PO SCH (10:01)
[2018-10-19] MEDS: Famotidine 20 MG Tablet PO SCH (10:01)
[2018-10-19] MEDS: Allopurinol 100 MG Tablet PO SCH (10:02)
[2018-10-19] MEDS: Senna/Docusate Sodium 8.6/50 MG Tablet PO SCH ×2 (10:02→21:55)
[2018-10-19] MEDS: Tolterodine Tartrate LA 4 MG Capsule PO SCH (10:02)
[2018-10-19] MEDS: Spironolactone 25 MG Tablet PO SCH (10:02)
[2018-10-19] MEDS: Calcium Carbonate 500 MG Tablet PO SCH ×2 (10:11→21:55)
--- NOTE | 2018-10-19 10:50 | P.PNFP ---
Subjective Interval history: Patient seen and examined at bedside this morning. She is resting comfortably in bed. States she was unable to get up and out of bed with physical therapy yesterday due to her left-sided hip pain. Says that she will try harder to do physical therapy. She still confirms some dysuria. She denies any chest pain, shortness of breath, abdominal pain, problems with defecation. <LeonardoPatsy - 10/19/18 13:32> Results - Labs Result diagrams: 10/19/18 09:33 10/19/18 09:33 <Nathan Wynne - 10/19/18 14:23> Abnormal lab results 10/18/18 10/19/18 10/19/18 Range/Units 15:45 09:33 09:33 WBC 13.8 H (4.0-11.0) th/mm3 RBC 3.23 L (4.00-5.30) mil/mm3 Hct 34.8 L (35.0-46.0) % MCV 107.7 H (80.0-100.0) fL MCH 36.6 H (27.0-34.0) pg Plt Count 137 L D (150-450) th/mm3 Neut % (Auto) 86.7 H (16.0-70.0) % Lymph % (Auto) 7.5 L (9.0-44.0) % Neut # (Auto) 12.0 H (1.8-7.7) th/mm3 BUN 24 H (7-18) mg/dL Creatinine 1.18 H (0.50-1.00) mg/dL Estimated GFR 43 L (>89) mL/min Calcium 7.7 L D (8.5-10.1) mg/dL Total Protein 5.9 L D (6.4-8.2) g/dL Albumin 2.6 L D (3.4-5.0) g/dL Vitamin B12 1225 H (193-986) pg/mL Folate Greater than 20.0 H (3.1-17.5) ng/mL Short CBC 10/19/18 Range/Units 09:33 WBC 13.8 H (4.0-11.0) th/mm3 Hgb 11.8 D (11.6-15.3) gm/dL Hct 34.8 L (35.0-46.0) % Plt Count 137 L D (150-450) th/mm3 BMP 10/19/18 09:33 Sodium 138 Potassium 4.1 Chloride 106 Carbon Dioxide 24.9 BUN 24 H Creatinine 1.18 H Calcium 7.7 L D Liver Function 10/19/18 Range/Units 09:33 Total Bilirubin 0.9 (0.2-1.0) mg/dL AST 20 (15-37) U/L ALT 25 (10-53) U/L Alkaline Phosphatase 93 (45-117) U/L Albumin 2.6 L D (3.4-5.0) g/dL <Nathan Wynne - 10/19/18 14:23> Abnormal lab results 10/18/18 Range/Units 15:45 Vitamin B12 1225 H (193-986) pg/mL Folate Greater than 20.0 H (3.1-17.5) ng/mL <Patsy Patterson - 10/19/18 10:50> Physical Exam Vital signs: Vital Signs 10/18/18 17:17 10/18/18 17:57 10/18/18 19:39 Temperature 97.9 F Pulse Rate 105 H 97 H Respiratory Rate 16 18 Blood Pressure 106/57 L Pulse Oximetry 93 L 10/18/18 20:00 10/18/18 23:28 10/19/18 00:00 Temperature 97.9 F Pulse Rate 92 H 99 H 106 H Respiratory Rate 16 Blood Pressure 120/69 Pulse Oximetry 97 10/19/18 04:00 10/19/18 07:56 10/19/18 08:23 Temperature 97.9 F 97.6 F Pulse Rate 89 93 H Respiratory Rate 18 18 Blood Pressure 119/64 139/76 Pulse Oximetry 97 97 94 L 10/19/18 11:11 Temperature 98 F Pulse Rate 95 H Respiratory Rate 18 Blood Pressure 135/88 Pulse Oximetry 93 L Intake & Output 10/18/18 10/19/18 10/19/18 18:59 06:59 18:59 Intake Total 1100 / 1100 1000 / 1000 100 / 100 Output Total 350 / 350 Balance 1100 / 1100 650 / 650 100 / 100 Weight 99.79 kg Intake: IV 1100 / 1100 1000 / 1000 100 / 100 NS Inj 1,000 ML @ 110 mls/hr IV 1000 / 1000 1000 / 1000 .CONT .Q9H6M [facility] Rx#:[id number] Rocephin Inj 1,000 MG In NS Inj 100 / 100 100 / 100 100 ML @ 200 mls/hr IV.SIG Q24H [facility] Rx#:[id number] Output: Urine 350 / 350 Other: # Urine Diapers 2 Weight On Admission 99.79 kg <Nathan Wynne - 10/19/18 14:23> Vital Signs 10/18/18 13:14 10/18/18 17:17 10/18/18 17:57 Temperature Pulse Rate 110 H 105 H Respiratory Rate 20 16 Blood Pressure 116/65 Pulse Oximetry 10/18/18 19:39 10/18/18 20:00 10/18/18 23:28 Temperature 97.9 F 97.9 F Pulse Rate 97 H 92 H 99 H Respiratory Rate 18 16 Blood Pressure 106/57 L 120/69 Pulse Oximetry 93 L 97 10/19/18 00:00 10/19/18 04:00 10/19/18 07:56 Temperature 97.9 F 97.6 F Pulse Rate 106 H 89 93 H Respiratory Rate 18 18 Blood Pressure 119/64 139/76 Pulse Oximetry 97 97 10/19/18 08:23 Temperature Pulse Rate Respiratory Rate Blood Pressure Pulse Oximetry 94 L Intake & Output 10/18/18 10/19/18 10/19/18 18:59 06:59 18:59 Intake Total 1100 / 1100 1000 / 1000 100 / 100 Output Total 350 / 350 Balance 1100 / 1100 650 / 650 100 / 100 Weight 99.79 kg Intake: IV 1100 / 1100 1000 / 1000 100 / 100 NS Inj 1,000 ML @ 110 mls/hr IV 1000 / 1000 1000 / 1000 .CONT .Q9H6M [facility] Rx#:[id number] Rocephin Inj 1,000 MG In NS Inj 100 / 100 100 / 100 100 ML @ 200 mls/hr IV.SIG Q24H [facility] Rx#:[id number] Output: Urine 350 / 350 Other: # Urine Diapers 2 Weight On Admission 99.79 kg <Patsy Patterson - 10/19/18 10:50> Narrative: CONSTITUTIONAL/GEN: Elderly female, lying in bed in no obvious distress, limited range of motion, unable to sit upright for auscultation of lungs. HEENT: dry oral mucosa. LUNGS: Limited posterior auscultation, clear bilaterally, respiratory effort is normal. CARDIOVASCULAR: RR without murmur or gallop. No significant edema. GI/ABD: soft without masses, without organomegaly. SKIN: color normal, multiple well-healed bruises appreciated in the upper and lower extremity b/l. PSYCH/MENTAL STATUS: Alert and oriented x 3. <Patsy Patterson - 10/19/18 13:31> - Urinary Catheter Management Straight Cath placed during this visit: no <Nathan Wynne - 10/19/18 14:23> yes, but has since been removed by the nurse <BriaparasPatsy gifford - 10/19/18 13:33> Reason for continuing: Not indwelling catheter <BriaparasPatsy gifford - 10/19/18 10: 50> Insertion date: 10/18/18 <Patsy Patterson - 10/19/18 10:50> Insertion time: 08:15 <BriaparasPatsy gifford - 10/19/18 10:50> Removal date: 10/18/18 <BriaparasиринаPatsy - 10/19/18 10:50> Removal time: 08:16 <Patsy Patterson - 10/19/18 10:50> Assessment and Plan - Assessment (1) UTI (urinary tract infection) Code(s): N39.0 - Urinary tract infection, site not specified Status: Acute (2) Contusion of hip Code(s): S70.00XA - Contusion of unspecified hip, initial encounter Status: Acute (3) Afib Code(s): I48.91 - Unspecified atrial fibrillation Status: Acute (4) CKD (chronic kidney disease) Code(s): N18.9 - Chronic kidney disease, unspecified Status: Acute (5) HTN (hypertension) Code(s): I10 - Essential (primary) hypertension Status: Acute (6) Elevated MCV Code(s): R71.8 - Other abnormality of red blood cells Status: Acute (7) Polypharmacy Code(s): Z79.899 - Other alf (current) drug therapy Status: Acute (8) Depression Code(s): F32.9 - Major depressive disorder, single episode, unspecified Status : Acute (9) DVT prophylaxis Status: Acute (10) Nutrition, metabolism, and development symptoms Code(s): R63.8 - Other symptoms and signs concerning food and fluid intake Status: Acute <Nathan Wynne - 10/19/18 14:23> (1) UTI (urinary tract infection) Code(s): N39.0 - Urinary tract infection, site not specified Status: Acute Plan: Patient with history of chronic UTI. Status post completion of antibiotics yesterday for UTI. Unsure of antibiotic regimen. From medicines reconciled: Patient seems to be on methenamine hippurate twice daily. Will hold. will continue home dose of tolterodine tartrate 4 mg daily. Patient admitted to inpatient due to failed outpatient therapy of UTI. UA positive for large leukocyte esterase. Moderate bacteria. 10/19: Patient still complaining of dysuria. WC increasing from 10.9 to 13.8. Patient Afebrile. Continue 1 g of ceftriaxone q24 Urine culture: No growth within 24 hours. Continue to monitor. Blood Cultures: No growth day 1. (2) Contusion of hip Code(s): S70.00XA - Contusion of unspecified hip, initial encounter Status: Acute Plan: Status post fall on left hip this a.m. Physical exam pertinent for tenderness at the left greater trochanter. Hip x-ray and knee x-ray shows no evidence of fracture. PT/OT ordered. Evaluate. Will avoid narcotics since patient is elderly. Concerning for sedation. Tylenol 650 for pain. Case management consulted for possible SNF placement. (3) Afib Code(s): I48.91 - Unspecified atrial fibrillation Status: Acute Plan: Continue Eliquis. Telemetry. (4) CKD (chronic kidney disease) Code(s): N18.9 - Chronic kidney disease, unspecified Status: Acute Plan: Creatinine on admission 1.43, increased from 1.30 in 2017. Trending downwards to 1.18 today. Concerns with hydration due to patient having somewhat underlying CHF. Trend CR in a.m. (5) HTN (hypertension) Code(s): I10 - Essential (primary) hypertension Status: Acute Plan: Patient currently normotensive. We will continue Aldactone 25 mg daily. Continue atorvastatin 40 daily. (6) Elevated MCV Code(s): R71.8 - Other abnormality of red blood cells Status: Acute Plan: Elevated MCV at 108.7. Hemoglobin and hematocrit stable. Folate and B12 WNL. (7) Polypharmacy Code(s): Z79.899 - Other alf (current) drug therapy Status: Acute Plan: Patient has not confirmed these medical conditions but from medicine reconciliation: Will continue allopurinol 100 mg daily. Calcium 500 mg twice daily Pepcid 20 mg daily Lasix 20 mg daily Atrovent 0.5 mg nebulizer every 6 as needed Meclizine 25 mg as needed Potassium chloride 10 mg daily . (8) Depression Code(s): F32.9 - Major depressive disorder, single episode, unspecified Status : Acute Plan: Continue escitalopram 5 mg. (9) DVT prophylaxis Status: Acute Plan: Eliquis. (10) Nutrition, metabolism, and development symptoms Code(s): R63.8 - Other symptoms and signs concerning food and fluid intake Status: Acute Plan: Fluids: maintenance therapy at 110 mls/hour. Electrolytes. Monitor and replete as needed. Nutrition: Cardiac diet. <Patsy Patterson - 10/19/18 13:33> - Assessment and Plan 88-year-old female past medical history of hypertension, A. fib on Eliquis, depression presents status post a fall on her left hip. Patient also has a history of chronic UTIs. Left hip x-rays of the right and left knee x-ray were unremarkable. No fracture injected. UA remarkable for large leukocyte esterase and moderate bacteria. Patient admitted to inpatient due to failure of outpatient UTI treatment. <Patsy Patterson - 10/19/18 13:31> Discussed Condition With: Dr. Wynne and Dr. Hawley. <Patsy Patterson - 10/19/18 13:31> - Attending Attestation Pt. examined and case discussed with resident physicians during medical rounds this morning I have examined the patient and agree with the assessment/plan as dictated above. I was involved in all medical decision making for this patient Nathan Wynne MD <Nathan Wynne - 10/19/18 14:23>
[2018-10-19 10:59] LABS: Baso % (Auto) 0.3 % (0.0-2.0); Eos # (Auto) 0.1 th/mm3 (0.0-0.4); Eos % (Auto) 1.1 % (0.0-4.0); Hematocrit 34.8 % (35.0-46.0); Hemoglobin 11.8 gm/dL (11.6-15.3); Lymph % (Auto) 7.5 % (9.0-44.0); Mean Corpuscular Hemoglobin 36.6 pg (27.0-34.0); Mean Corpuscular Volume 107.7 fL (80.0-100.0); Mean Platelet Volume 9.2 fL (7.0-11.0); Mono # (Auto) 0.6 th/mm3 (0.0-0.9); Mono % (Auto) 4.4 % (0.0-8.0); Neut % (Auto) 86.7 % (16.0-70.0); Platelet Count 137 th/mm3 (150-450); Red Blood Count 3.23 mil/mm3 (4.00-5.30); Red Cell Distribution Width 16.5 % (11.6-17.2); White Blood Count 13.8 th/mm3 (4.0-11.0)
[2018-10-19 11:39] LABS: Alanine Aminotransferase 25 U/L (10-53); Albumin 2.6 g/dL (3.4-5.0); Alkaline Phosphatase 93 U/L (45-117); Anion Gap 7 meq/L (5-15); Aspartate Aminotransferase 20 U/L (15-37); Blood Urea Nitrogen 24 mg/dL (7-18); Calcium 7.7 mg/dL (8.5-10.1); Carbon Dioxide 24.9 meq/L (21.0-32.0); Chloride 106 meq/L (98-107); Glomerular Filtration Rate 43 mL/min (>89); Glucose,Random 105 mg/dL (74-106); Potassium 4.1 meq/L (3.5-5.1); Sodium 138 meq/L (136-145); Total Protein 5.9 g/dL (6.4-8.2)
[2018-10-20 06:05] LABS: Baso % (Auto) 0.3 % (0.0-2.0); Eos # (Auto) 0.3 th/mm3 (0.0-0.4); Eos % (Auto) 2.9 % (0.0-4.0); Hematocrit 32.7 % (35.0-46.0); Hemoglobin 11.1 gm/dL (11.6-15.3); Lymph # (Auto) 1.1 th/mm3 (1.0-4.8); Lymph % (Auto) 9.6 % (9.0-44.0); Mean Corpuscular Volume 108.9 fL (80.0-100.0); Mean Platelet Volume 9.2 fL (7.0-11.0); Mono # (Auto) 0.8 th/mm3 (0.0-0.9); Neut # (Auto) 8.8 th/mm3 (1.8-7.7); Neut % (Auto) 80.2 % (16.0-70.0); Platelet Count 122 th/mm3 (150-450); Red Cell Distribution Width 16.2 % (11.6-17.2)
[2018-10-20 06:30] LABS: Alanine Aminotransferase 23 U/L (10-53); Albumin 2.4 g/dL (3.4-5.0); Anion Gap 7 meq/L (5-15); Aspartate Aminotransferase 21 U/L (15-37); Blood Urea Nitrogen 26 mg/dL (7-18); Calcium 7.8 mg/dL (8.5-10.1); Carbon Dioxide 24.8 meq/L (21.0-32.0); Chloride 106 meq/L (98-107); Glomerular Filtration Rate 47 mL/min (>89); Glucose,Random 98 mg/dL (74-106); Potassium 3.9 meq/L (3.5-5.1); Sodium 138 meq/L (136-145)
[2018-10-20 06:33] LABS: Alkaline Phosphatase 91 U/L (45-117); Total Protein 5.6 g/dL (6.4-8.2)
[2018-10-20] MEDS: Sod Chloride 0.9% Inj 1,000 ML IV.CONT SCH (09:01)
[2018-10-20] MEDS: Escitalopram 10 MG Tablet PO SCH (09:02)
[2018-10-20] MEDS: Tolterodine Tartrate LA 4 MG Capsule PO SCH (09:04)
[2018-10-20] MEDS: Furosemide 20 MG Tablet PO SCH (09:05)
[2018-10-20] MEDS: Senna/Docusate Sodium 8.6/50 MG Tablet PO SCH ×2 (09:05→20:43)
[2018-10-20] MEDS: Spironolactone 25 MG Tablet PO SCH (09:05)
[2018-10-20] MEDS: Famotidine 20 MG Tablet PO SCH (09:05)
[2018-10-20] MEDS: Calcium Carbonate 500 MG Tablet PO SCH ×2 (09:06→20:43)
[2018-10-20] MEDS: Allopurinol 100 MG Tablet PO SCH (09:06)
--- NOTE | 2018-10-20 11:15 | P.PNFP ---
Subjective Interval history: Doing well. No problems with intake. Improvement in back pain, only has pain in the hips with movement. Afraid to move due to fear of pain. Now has weakness in bilateral legs, unable to lift legs and to roll over. Tylenol is controlling pain. Has done limited work w/PT. No CVA tenderness or dysuria. No SOB or chest tightness, on NC O2. <Abid R2Estefani N - 10/20/18 11:14> Results - Labs Result diagrams: 10/20/18 04:47 10/20/18 04:47 <Nathan Wynne - 10/20/18 17:20> Abnormal lab results 10/20/18 10/20/18 Range/Units 04:47 04:47 RBC 3.00 L (4.00-5.30) mil/mm3 Hgb 11.1 L (11.6-15.3) gm/dL Hct 32.7 L (35.0-46.0) % MCV 108.9 H (80.0-100.0) fL MCH 37.0 H (27.0-34.0) pg Plt Count 122 L (150-450) th/mm3 Neut % (Auto) 80.2 H (16.0-70.0) % Neut # (Auto) 8.8 H (1.8-7.7) th/mm3 BUN 26 H (7-18) mg/dL Creatinine 1.10 H (0.50-1.00) mg/dL Estimated GFR 47 L (>89) mL/min Calcium 7.8 L (8.5-10.1) mg/dL Total Protein 5.6 L (6.4-8.2) g/dL Albumin 2.4 L (3.4-5.0) g/dL Short CBC 10/20/18 Range/Units 04:47 WBC 11.0 (4.0-11.0) th/mm3 Hgb 11.1 L (11.6-15.3) gm/dL Hct 32.7 L (35.0-46.0) % Plt Count 122 L (150-450) th/mm3 BMP 10/20/18 04:47 Sodium 138 Potassium 3.9 Chloride 106 Carbon Dioxide 24.8 BUN 26 H Creatinine 1.10 H Calcium 7.8 L Liver Function 10/20/18 Range/Units 04:47 Total Bilirubin 0.6 (0.2-1.0) mg/dL AST 21 (15-37) U/L ALT 23 (10-53) U/L Alkaline Phosphatase 91 (45-117) U/L Albumin 2.4 L (3.4-5.0) g/dL <SherrellNathan - 10/20/18 17:20> Abnormal lab results 10/19/18 10/19/18 10/20/18 Range/Units 09:33 09:33 04:47 WBC 13.8 H (4.0-11.0) th/mm3 RBC 3.23 L 3.00 L (4.00-5.30) mil/mm3 Hgb 11.1 L (11.6-15.3) gm/dL Hct 34.8 L 32.7 L (35.0-46.0) % MCV 107.7 H 108.9 H (80.0-100.0) fL MCH 36.6 H 37.0 H (27.0-34.0) pg Plt Count 137 L D 122 L (150-450) th/mm3 Neut % (Auto) 86.7 H 80.2 H (16.0-70.0) % Lymph % (Auto) 7.5 L (9.0-44.0) % Neut # (Auto) 12.0 H 8.8 H (1.8-7.7) th/mm3 BUN 24 H (7-18) mg/dL Creatinine 1.18 H (0.50-1.00) mg/dL Estimated GFR 43 L (>89) mL/min Calcium 7.7 L D (8.5-10.1) mg/dL Total Protein 5.9 L D (6.4-8.2) g/dL Albumin 2.6 L D (3.4-5.0) g/dL 10/20/18 Range/Units 04:47 WBC (4.0-11.0) th/mm3 RBC (4.00-5.30) mil/mm3 Hgb (11.6-15.3) gm/dL Hct (35.0-46.0) % MCV (80.0-100.0) fL MCH (27.0-34.0) pg Plt Count (150-450) th/mm3 Neut % (Auto) (16.0-70.0) % Lymph % (Auto) (9.0-44.0) % Neut # (Auto) (1.8-7.7) th/mm3 BUN 26 H (7-18) mg/dL Creatinine 1.10 H (0.50-1.00) mg/dL Estimated GFR 47 L (>89) mL/min Calcium 7.8 L (8.5-10.1) mg/dL Total Protein 5.6 L (6.4-8.2) g/dL Albumin 2.4 L (3.4-5.0) g/dL Short CBC 10/19/18 10/20/18 Range/Units 09:33 04:47 WBC 13.8 H 11.0 (4.0-11.0) th/mm3 Hgb 11.8 D 11.1 L (11.6-15.3) gm/dL Hct 34.8 L 32.7 L (35.0-46.0) % Plt Count 137 L D 122 L (150-450) th/mm3 [facility] 10/19/18 10/20/18 09:33 04:47 Sodium 138 138 Potassium 4.1 3.9 Chloride 106 106 Carbon Dioxide 24.9 24.8 BUN 24 H 26 H Creatinine 1.18 H 1.10 H Calcium 7.7 L D 7.8 L Liver Function 10/19/18 10/20/18 Range/Units 09:33 04:47 Total Bilirubin 0.9 0.6 (0.2-1.0) mg/dL AST 20 21 (15-37) U/L ALT 25 23 (10-53) U/L Alkaline Phosphatase 93 91 (45-117) U/L Albumin 2.6 L D 2.4 L (3.4-5.0) g/dL <Estefani Stone N - 10/20/18 11:14> - Imaging Impressions Lumbar Spine X-Ray 10/20/18 00:00 CONCLUSION: 1. Degenerative changes and scoliosis of the thoracolumbar spine. 2. Moderate-severe chronic compression deformity involving T12. 3. No acute fracture or spondylolisthesis of the lumbar spine. <Nathan Wynne - 10/20/18 17:20> Physical Exam Vital signs: Vital Signs 10/19/18 20:00 10/19/18 23:35 10/20/18 00:00 Temperature 97.4 F L 97.3 F L Pulse Rate 101 H 96 H Respiratory Rate 18 18 Blood Pressure 95/61 L 116/66 Pulse Oximetry 95 95 96 10/20/18 04:00 10/20/18 07:55 10/20/18 08:05 Temperature 98.3 F 98.1 F Pulse Rate 105 H 99 H Respiratory Rate 18 18 Blood Pressure 121/58 L 146/63 H Pulse Oximetry 93 L 95 95 10/20/18 10:58 Temperature 97.8 F Pulse Rate 103 H Respiratory Rate 20 Blood Pressure 153/73 H Pulse Oximetry 93 L Intake & Output 10/19/18 10/20/18 10/20/18 18:59 06:59 18:59 Intake Total 1100 / 1100 1200 / 1200 2017 Output Total 2500 / 2500 Balance 1100 / 1100 -1300 / -1300 2017 Intake: IV 1100 / 1100 1000 / 1000 1318 / 1318 NS Inj 1,000 ML @ 110 mls/hr IV 1000 / 1000 1000 / 1000 1218 / 1218 .CONT .Q9H6M [facility] Rx#:[id number] Rocephin Inj 1,000 MG In NS Inj 100 / 100 100 / 100 100 ML @ 200 mls/hr IV.SIG Q24H [facility] Rx#:[id number] Oral 200 / 200 700 / 700 Output: Urine 2500 / 2500 Other: Date of Last Bowel Movement 10/18/18 10/20/18 # Bowel Movements 1 <Nathan Wynne - 10/20/18 17:20> Vital Signs 10/19/18 11:11 10/19/18 12:00 10/19/18 16:00 Temperature 98 F Pulse Rate 95 H 92 H 93 H Respiratory Rate 18 Blood Pressure 135/88 Pulse Oximetry 93 L 10/19/18 20:00 10/19/18 23:35 10/20/18 00:00 Temperature 97.4 F L 97.3 F L Pulse Rate 101 H 96 H Respiratory Rate 18 18 Blood Pressure 95/61 L 116/66 Pulse Oximetry 95 95 96 10/20/18 04:00 10/20/18 07:55 10/20/18 08:05 Temperature 98.3 F 98.1 F Pulse Rate 105 H 99 H Respiratory Rate 18 18 Blood Pressure 121/58 L 146/63 H Pulse Oximetry 93 L 95 95 10/20/18 10:58 Temperature 97.8 F Pulse Rate 103 H Respiratory Rate 20 Blood Pressure 153/73 H Pulse Oximetry 93 L Intake & Output 10/19/18 10/20/18 10/20/18 18:59 06:59 18:59 Intake Total 1100 / 1100 1200 / 1200 1100 / 1100 Output Total 2500 / 2500 Balance 1100 / 1100 -1300 / -1300 1100 / 1100 Intake: IV 1100 / 1100 1000 / 1000 1100 / 1100 NS Inj 1,000 ML @ 110 mls/hr IV 1000 / 1000 1000 / 1000 1000 / 1000 .CONT .Q9H6M [facility] Rx#:[id number] Rocephin Inj 1,000 MG In NS Inj 100 / 100 100 / 100 100 ML @ 200 mls/hr IV.SIG Q24H [facility] Rx#:[id number] Oral 200 / 200 Output: Urine 2500 / 2500 Other: Date of Last Bowel Movement 10/18/18 <Estefani Stone - 10/20/18 11:14> Narrative: CONSTITUTIONAL/GEN: Elderly female, lying in bed in no obvious distress, limited range of motion, unable to roll over by herself. HEENT: moist mucosa LUNGS: clear bilaterally, respiratory effort is normal. On NC O2 1-2 L. CARDIOVASCULAR: RR without murmur or gallop. Mild edema in lower extremities. GI/ABD: soft without masses, without organomegaly. MSK: no pinpoint tenderness of the hips bilaterally. Unable to raise legs against gravity due to weakness not pain. Managed to bend right leg vertically, no pain radiating to back. Tenderness to palpation of the lower-mid back, possible step off. No UE weakness, normal ROM. SKIN: color normal, multiple well-healed bruises appreciated in the upper and lower extremity b/l. PSYCH/MENTAL STATUS: Alert and oriented x 3. <Estefani Stone - 10/20/18 11:14> - Urinary Catheter Management Straight Cath placed during this visit: no <Nathan Wynne - 10/20/18 17:20> yes, but has since been removed by the nurse <Estefani Stone - 10/20/18 11:58> Reason for continuing: Not indwelling catheter <Estefani Stone - 10/20/18 11 :14> Insertion date: 10/18/18 <Abid R2,Estefani N - 10/20/18 11:14> Insertion time: 08:15 <Abid R2,Estefani N - 10/20/18 11:14> Removal date: 10/18/18 <Abid R2,Estefani N - 10/20/18 11:14> Removal time: 08:16 <Abid R2,Estefani N - 10/20/18 11:14> Assessment and Plan - Assessment (1) UTI (urinary tract infection) Code(s): N39.0 - Urinary tract infection, site not specified Status: Acute (2) Back pain Code(s): M54.9 - Dorsalgia, unspecified Status: Acute (3) Hip pain, bilateral Code(s): M25.551 - Pain in right hip; M25.552 - Pain in left hip Status: Acute (4) Afib Code(s): I48.91 - Unspecified atrial fibrillation Status: Acute (5) CKD (chronic kidney disease) Code(s): N18.9 - Chronic kidney disease, unspecified Status: Acute (6) HTN (hypertension) Code(s): I10 - Essential (primary) hypertension Status: Acute (7) Elevated MCV Code(s): R71.8 - Other abnormality of red blood cells Status: Acute (8) Polypharmacy Code(s): Z79.899 - Other custodial (current) drug therapy Status: Acute (9) Depression Code(s): F32.9 - Major depressive disorder, single episode, unspecified Status : Acute (10) DVT prophylaxis Status: Acute (11) Nutrition, metabolism, and development symptoms Code(s): R63.8 - Other symptoms and signs concerning food and fluid intake Status: Acute <Nathan Wynne - 10/20/18 17:20> (1) UTI (urinary tract infection) Code(s): N39.0 - Urinary tract infection, site not specified Status: Acute Plan: Urine culture: No growth Blood Cultures: No growth Likely has chronic inflammation of bladder No dysuria, afebrile, WBC normalized Continue 1 g of ceftriaxone q24 for a total course of 3 days, Day #3 today (2) Back pain Code(s): M54.9 - Dorsalgia, unspecified Status: Acute Plan: Improving Possible step off along w/pinpoint tenderness in L1-L2 region Lumbar XR May also be 2/2 to trauma Con't Tylenol PRN (3) Hip pain, bilateral Code(s): M25.551 - Pain in right hip; M25.552 - Pain in left hip Status: Acute Plan: May be chronic, 2/2 to degen disease (4) Afib Code(s): I48.91 - Unspecified atrial fibrillation Status: Acute Plan: Continue Eliquis. DC tele (5) CKD (chronic kidney disease) Code(s): N18.9 - Chronic kidney disease, unspecified Status: Acute Plan: Trending downwards Con't to monitor (6) HTN (hypertension) Code(s): I10 - Essential (primary) hypertension Status: Acute Plan: Patient currently normotensive. continue Aldactone 25 mg daily. Continue atorvastatin 40 daily. (7) Elevated MCV Code(s): R71.8 - Other abnormality of red blood cells Status: Acute Plan: Elevated MCV at 108.7. Hemoglobin and hematocrit stable. Folate and B12 WNL. (8) Polypharmacy Code(s): Z79.899 - Other custodial (current) drug therapy Status: Acute Plan: Patient has not confirmed these medical conditions but from medicine reconciliation: Will continue allopurinol 100 mg daily. Calcium 500 mg twice daily Pepcid 20 mg daily Lasix 20 mg daily Atrovent 0.5 mg nebulizer every 6 as needed Meclizine 25 mg as needed Potassium chloride 10 mg daily . (9) Depression Code(s): F32.9 - Major depressive disorder, single episode, unspecified Status : Acute Plan: Continue escitalopram 5 mg. (10) DVT prophylaxis Status: Acute Plan: Eliquis. (11) Nutrition, metabolism, and development symptoms Code(s): R63.8 - Other symptoms and signs concerning food and fluid intake Status: Acute Plan: Fluids: DC fluids, able to take PO Electrolytes. Monitor and replete as needed. Nutrition: Cardiac diet. <Abid Estefani Roa N - 10/20/18 11:58> - Assessment and Plan 88-year-old female past medical history of hypertension, A. fib on Eliquis, depression presents status post a fall on her left hip. Patient also has a history of chronic UTIs. Left hip x-rays of the right and left knee x-ray were unremarkable. No fracture injected. UA remarkable for large leukocyte esterase and moderate bacteria. Patient admitted to inpatient due to failure of outpatient UTI treatment. <Estefani Stone - 10/20/18 11:14> - Attending Attestation Patient case discussed with resident physicians I have independently examined the patient I have read the above note and agree with the assessment and plan as discussed with me I was involved in all medical decision making for this patient Nathan Wynne MD <Nathan Wynne - 10/20/18 17:20>
--- NOTE | 2018-10-20 16:24 | XR ---
EXAM DATE: 10/20/2018 4:20 PM EST AGE/SEX: 88 years / Female INDICATIONS: Back pain. CLINICAL DATA: This is the patient's initial encounter. Patient reports that signs and symptoms have been present for 3 days and indicates a pain score of 6/10. MEDICAL/SURGICAL HISTORY: . A-fib. . Bilateral hip replacements COMPARISON: [facility], CT THORAX W CONTRAST, 06/18/2016. . FINDINGS: Moderate-severe chronic compression deformity involving T12 is noted. Degenerative changes are noted throughout the lumbar spine. No spondylolisthesis is noted. Mild scoliosis is noted. CONCLUSION: 1. Degenerative changes and scoliosis of the thoracolumbar spine. 2. Moderate-severe chronic compression deformity involving T12. 3. No acute fracture or spondylolisthesis of the lumbar spine. Electronically signed by: Kirill Rome MD Board Certified Radiologist 10/20/2018 4:22 PM EST
[2018-10-20] MEDS: Acetaminophen 325 MG Tablet PO PRN (20:44)
[2018-10-21 08:01] VITALS: RESP 18
[2018-10-21] MEDS: Calcium Carbonate 500 MG Tablet PO SCH (08:41)
[2018-10-21] MEDS: Escitalopram 10 MG Tablet PO SCH (08:41)
[2018-10-21] MEDS: Tolterodine Tartrate LA 4 MG Capsule PO SCH (08:42)
[2018-10-21] MEDS: Senna/Docusate Sodium 8.6/50 MG Tablet PO SCH (08:42)
[2018-10-21] MEDS: Allopurinol 100 MG Tablet PO SCH (08:42)
[2018-10-21] MEDS: Famotidine 20 MG Tablet PO SCH (08:42)
[2018-10-21] MEDS: Spironolactone 25 MG Tablet PO SCH (08:42)
[2018-10-21] MEDS: Furosemide 20 MG Tablet PO SCH (08:42)
--- NOTE | 2018-10-21 08:58 | P.PNFP ---
Subjective Interval history: Doing well today overall. States she feels less weak. Willing to go to rehab, understands she does not have enough help at home for the weakness she has. On 1.5 L NC O2 this AM, per nursing, satting at 94% without it. O2 DC'd while in the room. <Estefani Stone N - 10/21/18 08:58> Results - Labs Result diagrams: 10/20/18 04:47 10/20/18 04:47 <Nathan Wynne - 10/21/18 14:44> - Imaging Impressions Lumbar Spine X-Ray 10/20/18 00:00 CONCLUSION: 1. Degenerative changes and scoliosis of the thoracolumbar spine. 2. Moderate-severe chronic compression deformity involving T12. 3. No acute fracture or spondylolisthesis of the lumbar spine. <Nathan Wynne - 10/21/18 14:44> Impressions Lumbar Spine X-Ray 10/20/18 00:00 CONCLUSION: 1. Degenerative changes and scoliosis of the thoracolumbar spine. 2. Moderate-severe chronic compression deformity involving T12. 3. No acute fracture or spondylolisthesis of the lumbar spine. <Jaquan Estefani Roa N - 10/21/18 08:58> Physical Exam Vital signs: Vital Signs 10/20/18 15:16 10/20/18 18:36 10/20/18 20:00 Temperature 98.1 F 97.8 F Pulse Rate 86 94 H 106 H Respiratory Rate 21 18 Blood Pressure 123/71 117/55 L Pulse Oximetry 96 94 L 10/21/18 00:00 10/21/18 04:00 10/21/18 08:00 Temperature 97.7 F 97.5 F L 96.3 F L Pulse Rate 90 92 H 92 H Respiratory Rate 16 16 18 Blood Pressure 144/63 H 109/56 L 128/73 Pulse Oximetry 95 95 98 10/21/18 12:00 Temperature 96.5 F L Pulse Rate 96 H Respiratory Rate 18 Blood Pressure 123/58 L Pulse Oximetry 97 Intake & Output 10/20/18 10/21/18 10/21/18 18:59 06:59 18:59 Intake Total 2017 240 / 240 Output Total 1000 / 1000 Balance 1018 / 1018 240 / 240 Intake: IV 1318 / 1318 100 / 100 NS Inj 1,000 ML @ 110 mls/hr IV 1218 / 1218 .CONT .Q9H6M [facility] Rx#:[id number] Rocephin Inj 1,000 MG In NS Inj 100 / 100 100 / 100 100 ML @ 200 mls/hr IV.SIG Q24H [facility] Rx#:[id number] Oral 700 / 700 140 / 140 Output: Urine 1000 / 1000 Other: Date of Last Bowel Movement 10/20/18 # Bowel Movements 1 <Nathan Wynne - 10/21/18 14:44> Vital Signs 10/20/18 10:58 10/20/18 11:15 10/20/18 15:16 Temperature 97.8 F Pulse Rate 103 H 95 H 86 Respiratory Rate 20 Blood Pressure 153/73 H Pulse Oximetry 93 L 10/20/18 18:36 10/20/18 20:00 10/21/18 00:00 Temperature 98.1 F 97.8 F 97.7 F Pulse Rate 94 H 106 H 90 Respiratory Rate 21 18 16 Blood Pressure 123/71 117/55 L 144/63 H Pulse Oximetry 96 94 L 95 10/21/18 04:00 10/21/18 08:00 Temperature 97.5 F L 96.3 F L Pulse Rate 92 H 92 H Respiratory Rate 16 18 Blood Pressure 109/56 L 128/73 Pulse Oximetry 95 98 Intake & Output 10/20/18 10/21/18 10/21/18 18:59 06:59 18:59 Intake Total 2017 Output Total 1000 / 1000 Balance 1018 / 1018 Intake: IV 1318 / 1318 NS Inj 1,000 ML @ 110 mls/hr IV 1218 / 1218 .CONT .Q9H6M [facility] Rx#:[id number] Rocephin Inj 1,000 MG In NS Inj 100 / 100 100 ML @ 200 mls/hr IV.SIG Q24H [facility] Rx#:[id number] Oral 700 / 700 Output: Urine 1000 / 1000 Other: Date of Last Bowel Movement 10/20/18 # Bowel Movements 1 <Jaquan Estefani Roa N - 10/21/18 08:58> Narrative: CONSTITUTIONAL/GEN: Elderly female, lying in bed in no obvious distress, limited range of motion. HEENT: moist mucosa LUNGS: clear bilaterally, respiratory effort is normal. On NC O2 1-2 L. CARDIOVASCULAR: RR without murmur or gallop. Mild edema in lower extremities. GI/ABD: soft without masses, without organomegaly. MSK: LE weakness w/1/5 strength in right leg, 2/5 in left leg. normal strength in UE. SKIN: color normal, multiple well-healed bruises appreciated in the upper and lower extremity b/l. PSYCH/MENTAL STATUS: Alert and oriented x 3. <Abid R2Estefani - 10/21/18 08:58> - Urinary Catheter Management Straight Cath placed during this visit: no <SherrellNathan - 10/21/18 14:44> yes, but has since been removed by the nurse <Abid R2Estefani - 10/21/18 08:58> Reason for continuing: Not indwelling catheter <Abid R2,Estefani - 10/21/18 08 :58> Insertion date: 10/18/18 <Abid R2,[facility] - 10/21/18 08:58> Insertion time: 08:15 <Abid R2,[facility] - 10/21/18 08:58> Removal date: 10/18/18 <Abid R2,Estefani N - 10/21/18 08:58> Removal time: 08:16 <Abid R2,[facility] - 10/21/18 08:58> Assessment and Plan - Assessment (1) UTI (urinary tract infection) Code(s): N39.0 - Urinary tract infection, site not specified Status: Acute (2) Back pain Code(s): M54.9 - Dorsalgia, unspecified Status: Acute (3) Hip pain, bilateral Code(s): M25.551 - Pain in right hip; M25.552 - Pain in left hip Status: Acute (4) Afib Code(s): I48.91 - Unspecified atrial fibrillation Status: Acute (5) CKD (chronic kidney disease) Code(s): N18.9 - Chronic kidney disease, unspecified Status: Acute (6) HTN (hypertension) Code(s): I10 - Essential (primary) hypertension Status: Acute (7) Polypharmacy Code(s): Z79.899 - Other moth exterminator (current) drug therapy Status: Acute (8) Depression Code(s): F32.9 - Major depressive disorder, single episode, unspecified Status : Acute (9) Nutrition, metabolism, and development symptoms Code(s): R63.8 - Other symptoms and signs concerning food and fluid intake Status: Acute (10) DVT prophylaxis Status: Acute <Nathan Wynne - 10/21/18 14:44> (1) UTI (urinary tract infection) Code(s): N39.0 - Urinary tract infection, site not specified Status: Acute Plan: Resolved, no growth on ucx. Completed ceftriaxone q24 for a total course of 3 days, Day #3 today (2) Back pain Code(s): M54.9 - Dorsalgia, unspecified Status: Acute Plan: Improving Lumbar XR shows chronic compression fx and scoliosis, no acute injury Con't Tylenol PRN, did not require use overnight (3) Hip pain, bilateral Code(s): M25.551 - Pain in right hip; M25.552 - Pain in left hip Status: Acute Plan: May be chronic, 2/2 to degen disease (4) Afib Code(s): I48.91 - Unspecified atrial fibrillation Status: Acute Plan: Continue Eliquis. (5) CKD (chronic kidney disease) Code(s): N18.9 - Chronic kidney disease, unspecified Status: Acute Plan: Trending downwards Con't to monitor (6) HTN (hypertension) Code(s): I10 - Essential (primary) hypertension Status: Acute Plan: continue Aldactone 25 mg daily. Continue atorvastatin 40 daily. (7) Polypharmacy Code(s): Z79.899 - Other shelter (current) drug therapy Status: Acute Plan: Patient has not confirmed these medical conditions but from medicine reconciliation: Will continue allopurinol 100 mg daily. Calcium 500 mg twice daily Pepcid 20 mg daily Lasix 20 mg daily Atrovent 0.5 mg nebulizer every 6 as needed Meclizine 25 mg as needed Potassium chloride 10 mg daily . (8) Depression Code(s): F32.9 - Major depressive disorder, single episode, unspecified Status : Acute Plan: Continue escitalopram 5 mg. (9) Nutrition, metabolism, and development symptoms Code(s): R63.8 - Other symptoms and signs concerning food and fluid intake Status: Acute Plan: Fluids: none Electrolytes. Monitor and replete as needed. Nutrition: Cardiac diet. (10) DVT prophylaxis Status: Acute Plan: Eliquis. <Estefani Stone - 10/21/18 08:54> - Assessment and Plan 88-year-old female past medical history of hypertension, A. fib on Eliquis, depression presents status post a fall on her left hip. Patient also has a history of chronic UTIs. Left hip x-rays of the right and left knee x-ray were unremarkable. No fracture injected. UA remarkable for large leukocyte esterase and moderate bacteria. Patient admitted to inpatient due to failure of outpatient UTI treatment. <Estefani Stone 10/21/18 08:58> Discharge Planning: Plan for DC today, preferably SNF. <Estefani Stone 10/21/18 08:58> - Attending Attestation Patient case discussed with resident physicians I have independently examined the patient I have read the above note and agree with the assessment and plan as discussed with me I was involved in all medical decision making for this patient Patient to be discharged to [facility] [place] for continued physical therapy -Antibiotics will be discontinued as urine culture has resulted as no growth -Patient requires continued physical therapy for strengthening prior to returning home Nathan Wynne MD <Nathan Wynne - 10/21/18 14:44>
--- NOTE | 2018-10-21 09:05 | P.DS ---
Date of admission: 10/18/18 15:35 Primary care physician: Saqib Allison MD Brief History from admission: 88-year-old female presenting to the emergency department following a fall at home. She has been complaining of dysuria over the last 3 days as well as a sense of weakness with frequent falls. This morning, she was changing when she had a mechanical fall, hitting her left knee/hip/back. She did not lose consciousness and did not hit her head. She has a history of chronic UTIs for which she recently completed an antibiotic, however continues to have dysuria. She does follow with a urologist and is undergoing further workup for these chronic UTIs. She denies any chest pain, denies any fevers or chills, denies any back pain or flank pain, denies any nausea or vomiting, denies any palpitations prior to this episode. She does live at home with her elderly , they have nursing that coming to the house frequently to help out. DS: Diagnosis - Discharge Diagnosis (1) UTI (urinary tract infection) Status: Acute (2) Back pain Status: Acute (3) Hip pain, bilateral Status: Acute (4) Afib Status: Acute (5) CKD (chronic kidney disease) Status: Acute (6) HTN (hypertension) Status: Acute (7) Polypharmacy Status: Acute (8) Depression Status: Acute (9) Nutrition, metabolism, and development symptoms Status: Acute (10) DVT prophylaxis Status: Acute DS: Summary - Time Spent with Patient Total time spent providing and/or coordinating discharge services: - Quality: VTE Deep Vein Thrombosis/Pulmonary Embolism Present on Admission: No Exam Vital signs: Vital Signs 10/20/18 10:58 10/20/18 11:15 10/20/18 15:16 Temperature 97.8 F Pulse Rate 103 H 95 H 86 Respiratory Rate 20 Blood Pressure 153/73 H Pulse Oximetry 93 L 10/20/18 18:36 10/20/18 20:00 10/21/18 00:00 Temperature 98.1 F 97.8 F 97.7 F Pulse Rate 94 H 106 H 90 Respiratory Rate 21 18 16 Blood Pressure 123/71 117/55 L 144/63 H Pulse Oximetry 96 94 L 95 10/21/18 04:00 10/21/18 08:00 Temperature 97.5 F L 96.3 F L Pulse Rate 92 H 92 H Respiratory Rate 16 18 Blood Pressure 109/56 L 128/73 Pulse Oximetry 95 98 Intake & Output 10/20/18 10/21/18 10/21/18 18:59 06:59 18:59 Intake Total 2017 Output Total 1000 / 1000 Balance 1018 / 1018 Intake: IV 1318 / 1318 NS Inj 1,000 ML @ 110 mls/hr IV 1218 / 1218 .CONT .Q9H6M [facility] Rx#:[id number] Rocephin Inj 1,000 MG In NS Inj 100 / 100 100 ML @ 200 mls/hr IV.SIG Q24H [facility] Rx#:[id number] Oral 700 / 700 Output: Urine 1000 / 1000 Other: Date of Last Bowel Movement 10/20/18 # Bowel Movements 1 Results Labs on day of discharge: Preliminary micro results at discharge 10/18/18 09:20 Aerobic Blood Culture - Preliminary Blood - Peripheral No growth in 2 days Anaerobic Blood Culture - Preliminary No growth in 2 days 10/18/18 09:05 Aerobic Blood Culture - Preliminary Blood - Peripheral No growth in 2 days Anaerobic Blood Culture - Preliminary No growth in 2 days - Impressions ITS Impressions Hip X-Ray 10/18/18 06:38 CONCLUSION: No evidence of fracture. Knee X-Ray 10/18/18 07:41 CONCLUSION: No evidence of fracture. Severe tricompartment degenerative changes. Lumbar Spine X-Ray 10/20/18 00:00 CONCLUSION: 1. Degenerative changes and scoliosis of the thoracolumbar spine. 2. Moderate-severe chronic compression deformity involving T12. 3. No acute fracture or spondylolisthesis of the lumbar spine. Discharge Plan - Discharge Disposition Patient Disposition: Discharge to SNF - Discharge Condition Condition: Stable - Discharge Order Discharge Orders: Discharge Order (Routine); Ordered 10/21/18 Ordered By: Estefani Partida R2 - Discharge Details Anticipated Discharge Date: 10/18/18 Discharge Comment: DC after PT today - Physicians Team Primary Care Provider: Saqib Allison Attending Provider: Nathan Wynne
[2018-10-21] MEDS: Acetaminophen 325 MG Tablet PO PRN (11:24)
[2018-10-21 12:02] VITALS: O2SAT 97
[2018-10-21 16:35] VITALS: BP 106/66; PULSE 97; TEMP 95.7
== END 2018-10-21 16:19 ==
LOC: NEPC 06:01 → NEDA 09:20 → INTOOBSV 09:20 → NEPFCDU 13:56
PROVIDERS: ADMIT Family Medicine; ATTEND Family Medicine